=== PATIENT | female | born 1950 | race Caucasian/White ===

== ENCOUNTER → 2017-12-13 13:04 | Outpatient (CLI) | payer OTHER, SELFPAY ==
--- NOTE | 2017-12-13 | DI.MRI.S_ITS ---
PROCEDURE: MR CERVICAL SPINE WO CON INDICATIONS: NECK PAIN LUMBAR RADICULOPATHY TECHNIQUE: Noncontrast sagittal T1 spin echo and T2 fast spin echo, sagittal STIR, foraminal oblique sagittal T2 fast spin echo, and axial gradient echo or T2 fast spin echo through the cervical spine. COMPARISON: [facility], MR, C-SPINE WITHOUT CONTRAST, 06/19/2014, 14:49. [facility], CT, C-SPINE W/CONTRAST, 12/04/2014, 15:25. [facility], MR, C-SPINE WITHOUT CONTRAST, 03/10/2016, 14:13. FINDINGS: Image quality: Excellent. Alignment and Curvature: There is loss of normal cervical lordosis. Bone Marrow: There is anterior fusion at C5-C6. Marrow demonstrates normal overall signal. Spinal Cord: Visualized spinal cord has normal size and signal. No cerebellar tonsillar herniation. Paraspinous Soft Tissues: No paravertebral masses. Prevertebral soft tissues are normal in thickness. C2-C3: Preserved disc height. Mild disc desiccation. There is mild posterior disc bulge. Moderate bilateral facet arthropathy. The central canal is patent. No foraminal stenosis. C3-C4: Preserved disc height. Mild disc desiccation. There is mild posterior disc bulge and uncovertebral hypertrophy. Moderate bilateral facet arthropathy. The central canal is patent. No foraminal stenosis. Overall, there is no significant change from 03/10/2016. C4-C5: Mild loss of disc height and disc desiccation. There is broad posterior disc bulge and uncovertebral hypertrophy. Mild bilateral facet arthropathy. The central canal is [id number] narrowed. Moderate foraminal stenosis bilaterally. Overall, there is no significant change from 03/10/2016. C5-C6: Surgically fused. No central canal or foraminal stenosis. C6-C7: Mild loss of disc height. Mild disc desiccation. There is broad posterior disc bulge and disc osteophyte complex. The central canal is moderately narrowed. Moderate left and mild right foraminal stenosis. Overall, there is no significant change from 03/10/2016. C7-T1: Preserved disc height. Mild disc desiccation. There is mild broad posterior disc bulge. The central canal is minimally narrowed. No foraminal stenosis.. IMPRESSION: 1. Multilevel degenerative and postsurgical changes in cervical spine as described. 2. Multilevel central canal stenoses, moderate at C6-C7 and mild to moderate at C4-C5. 3. Multilevel foraminal stenoses as described, moderate at C4-C5 bilaterally and C6-C7 on the left. Dictated by: Gilbert Edwards M.D. on 12/13/2017 at 14:11 Approved by: Gilbert Edwards M.D. on 12/13/2017 at 17:54
--- NOTE | 2017-12-13 | DI.MRI.S_ITS ---
PROCEDURE: MR LUMBAR SPINE WO CON INDICATIONS: NECK PAIN LUMBAR RADICULOPATHY TECHNIQUE: Noncontrast sagittal T1 spin echo and T2 fast echo, sagittal STIR, axial T1 and T2 fast spin echo through the lumbar spine. In cases with scoliosis, additional coronal T2 fast spin echo may be performed. COMPARISON: [facility], MR, L-SPINE W&WO CONTRAST, 06/19/2014, 15:25. [facility], CR, SPINE LUMB 2 OR 3VW, 08/27/2014, 15:11. [facility], CT, L-SPINE W/CONTRAST, 12/04/2014, 15:25. [facility], MR, L-SPINE W&WO CONTRAST, 03/10/2016, 14:38. FINDINGS: Image quality: There are motion artifacts. Alignment and Curvature: There is mild levoscoliosis. Grade 1 retrolisthesis of L3 on L4. Bone Marrow: Degenerative endplate signal changes scattered in lumbar spine. No acute vertebral body compression fractures. Spinal Cord: Conus medullaris terminates at the L1-L2 level. Visualized cord demonstrates normal signal and size. Paraspinous Soft Tissues: No paravertebral masses. L1-L2: Severe loss of disc height and disc desiccation. There is mild diffuse posterior disc bulge. Mild bilateral facet arthropathy and hypertrophy of ligamentum flavum. The central canal is mildly narrowed. No foraminal stenosis. L2-L3: Severe loss of disc height and disc desiccation. There is diffuse posterior disc bulge and disc osteophyte complex. Mild bilateral facet arthropathy and hypertrophy of ligamentum flavum. The central canal is mildly narrowed. Moderate right and mild left foraminal stenosis. L3-L4: Right hemilaminectomy. Severe loss of disc height and disc desiccation. There is diffuse posterior disc bulge and disc osteophyte complex. Mild bilateral facet arthropathy and hypertrophy of ligamentum flavum. The central canal is mildly narrowed. Moderate bilateral foraminal stenosis. L4-L5: Preserved disc height. Moderate disc desiccation. There is diffuse posterior disc bulge and small posterior central annular tear. Mild bilateral facet arthropathy. The central canal is patent. Moderate bilateral foraminal stenosis. L5-S1: Severe loss of disc height and disc desiccation. There is diffuse posterior disc bulge and disc osteophyte complex. Mild bilateral facet arthropathy. The central canal is mildly narrowed. Whxpqeqh-wa-puhwun bilateral foraminal stenosis. IMPRESSION: 1. Multilevel degenerative disc disease and facet arthropathy as described. 2. Mild central canal stenosis at several levels. 3. Multilevel foraminal stenoses, moderate to severe L5-S1, moderate at L2-L3 on the right, L3-L4 bilaterally and L4-L5 bilaterally. Dictated by: Gilbert Edwards M.D. on 12/13/2017 at 15:56 Transcribed by: MEHDI on 12/13/2017 at 16:09 Approved by: Gilbert Edwards M.D. on 12/13/2017 at 17:59
== END ==
PROVIDERS: PCP Family Medicine; Visit Provider Family Medicine
DX: M54.2 Cervicalgia (principal); M54.16 Radiculopathy, lumbar region; M47.26 Other spondylosis with radiculopathy, lumbar region; M48.02 Spinal stenosis, cervical region; M48.061 Spinal stenosis, lumbar region without neurogenic claudication; M48.07 Spinal stenosis, lumbosacral region
CPT/HCPCS: 72141; 72148

== ENCOUNTER → 2018-05-06 16:25 | Outpatient (CLI) | payer OTHER, SELFPAY ==
--- NOTE | 2018-05-06 16:28 | DI.RAD.S_ITS ---
PROCEDURE: XR CHEST 2V INDICATIONS: cough TECHNIQUE: 2 views of the chest were acquired. COMPARISON: [facility], , CHEST 2 VIEW, 03/22/2017, 14:44. FINDINGS: Surgical changes and devices: Lower cervical spine fixation hardware redemonstrated. Lungs and pleura: No pleural effusions or pneumothorax. Lungs are clear. Mediastinum: Mediastinal contours are normal. Heart size is normal. Bones and chest wall: No suspicious bony abnormalities. Soft tissues appear unremarkable. IMPRESSION: No acute cardiopulmonary disease. Dictated by: William Castro [facility] Interpreted: Terrell Escudero MD on 05/06/2018 at 16:42 Approved by: Terrell Escudero M.D. on 05/06/2018 at 16:50
== END ==
PROVIDERS: PCP Family Medicine; Visit Provider Family Medicine
DX: R05 Cough (principal)
CPT/HCPCS: 71046

== ENCOUNTER → 2018-05-23 13:12 | Outpatient (CLI) | payer OTHER, SELFPAY ==
--- NOTE | 2018-05-23 | DI.CT.S_ITS ---
PROCEDURE: CT CHEST W CON INDICATIONS: COUGH TECHNIQUE: After the administration of intravenous contrast, 5 mm thick sections acquired from the pulmonary apices to the posterior costophrenic angles. 7 mm thick coronal and sagittal MIP reformats were acquired. For radiation dose reduction, the following was used: automated exposure control, adjustment of mA and/or kV according to patient size. COMPARISON: None. FINDINGS: Image quality: Excellent. Lungs and pleura: No acute air space opacities. No pleural effusions or pneumothorax. Central and peripheral airways are patent and normal in caliber. Mediastinum: Heart size is normal. No pericardial effusion. No mediastinal or hilar adenopathy by size criteria. Thoracic aorta and central pulmonary arteries are normal in size. Esophagus is normal in caliber. Small hiatal hernia. Bones and chest wall: No suspicious bony lesions. No vertebral body compression fractures. No axillary or supraclavicular adenopathy by size criteria. Thyroid gland negative. Hepatic steatosis. Scattered hypodense lesions in liver which are presumably cysts although some of these are technically too small to characterize definitively for example on image 51 in the right lobe. IMPRESSION: No acute consolidation. Scattered scarring/atelectasis. Small hiatal hernia. Presumed hepatic cysts although some of these are technically too small characterize. Hepatic steatosis. Dictated by: Tererll Escudero M.D. on 05/23/2018 at 15:13 Approved by: Terrell Escudero M.D. on 05/23/2018 at 15:19
== END ==
PROVIDERS: PCP Family Medicine; Visit Provider Family Medicine
DX: R05 Cough (principal); J98.4 Other disorders of lung; K76.0 Fatty (change of) liver, not elsewhere classified; K44.9 Diaphragmatic hernia without obstruction or gangrene
CPT/HCPCS: 71260; Q9967

== ENCOUNTER → 2018-08-11 16:32 | Outpatient (CLI) | payer OTHER, SELFPAY ==
[2018-08-11 17:15] LABS: Add Manual Diff / Slide Review NO; Basophils Absolute Auto 0 /uL (0-100); Basophils Percent Auto 0.4 % (0-2); Eosinophils Absolute Auto 300 /uL (0-450); Eosinophils Percent Auto 3.4 % (2-4); Hemoglobin 14.9 g/dL (12.0-16.0); Lymphocytes Absolute Auto 2800 /uL (1100-4500); Lymphocytes Percent Auto 36.6 % (25-40); Mean Corpuscular HGB Conc 33.1 % (30-36); Mean Corpuscular Hemoglobin 27.7 PG (26-34); Mean Corpuscular Volume 83.8 fL (80-100); Monocytes Absolute Auto 600 /uL (0-900); Monocytes Percent Auto 7.5 % (3-14); Neutrophils Absolute Auto 4000 /uL (1500-7000); Neutrophils Percent Auto 52.1 % (50-75); Platelet Count 243 X10^3/uL (150-400); Red Blood Cell Count 5.37 X10^6/uL (4.0-5.2); Red Cell Distribution Width 13.8 % (11.6-14.8); White Blood Cell Count 7.7 X10^3/uL (4.5-11.0)
[2018-08-11 17:36] LABS: Alanine Aminotransferase 26 IU/L (9-52); Albumin 4.5 g/dL (3.5-5.0); Albumin Globulin Ratio 1.4 (1.0-2.8); Alkaline Phosphatase 51 U/L (38-126); Aspartate Aminotransferase 30 IU/L (14-36); BUN Creatinine Ratio 20.8 (6-22); Bilirubin Total 0.3 mg/dL (0.2-1.3); Blood Urea Nitrogen 27 mg/dL (7-17); Calcium 9.7 mg/dL (8.4-10.2); Carbon Dioxide 32 mmol/L (22-32); Chloride 97 mmol/L (98-107); Cholesterol 232 mg/dL (140-199); Estimated Glomerular Filt Rate 40.6 mL/min (>60); Globulin 3.3 g/dL (1.7-4.1); Glucose 89 mg/dL (80-110); HDL Cholesterol 53 mg/dL (40-60); HEMOLYSIS < 15 (0-50); LDL Cholesterol Calculated 136 mg/dL (<100); Potassium 4.2 mmol/L (3.4-5.1); Sodium 138 mmol/L (137-145); Total Protein 7.8 g/dL (6.3-8.2); Triglycerides 214 mg/dL (35-150)
[2018-08-11 17:52] LABS: Free T4, Direct Thyroxine 1.29 ng/dL (0.78-2.19)
[2018-08-11 18:06] LABS: LDL Cholesterol Direct 146 mg/dL (<100); Thyroid Stimulating Hormone 0.03 uIU/mL (0.47-4.68)
== END ==
PROVIDERS: Family Provider Family Medicine; PCP Family Medicine; Visit Provider Family Medicine
DX: K76.0 Fatty (change of) liver, not elsewhere classified (principal); R05 Cough; M79.7 Fibromyalgia; R35.0 Frequency of micturition; N18.3 Chronic kidney disease, stage 3 (moderate); M85.80 Other specified disorders of bone density and structure, unspecified site; M54.16 Radiculopathy, lumbar region; R79.89 Other specified abnormal findings of blood chemistry; E03.9 Hypothyroidism, unspecified; E78.5 Hyperlipidemia, unspecified; F41.8 Other specified anxiety disorders
CPT/HCPCS: 36415; 80053; 80061; 83721; 84439; 84443; 85025

== ENCOUNTER → 2018-08-17 14:25 | Outpatient (CLI) | payer OTHER, SELFPAY ==
--- NOTE | 2018-08-17 | DI.MG.S_ITS ---
BILATERAL DIGITAL SCREENING MAMMOGRAM 3D/2D WITH CAD: 08/17/2018 CLINICAL: Routine screening. Comparison is made to exams dated: 04/06/2017 mammogram, 01/19/2014 mammogram, and 03/07/2010 mammogram - [facility]. There are scattered fibroglandular elements in both breasts. Current study was also evaluated with a Computer Aided Detection (CAD) system. No significant masses, calcifications, or other findings are seen in either breast. There has been no significant interval change. IMPRESSION: NEGATIVE There is no mammographic evidence of malignancy. A 1 year screening mammogram is recommended. This exam was interpreted at Station ID: [id number]. NOTE: For mammograms, a report in lay terms will be sent to the patient. Approximately 15% of breast malignancies will not be visualized mammographically. In the management of a palpable breast mass, a negative mammogram must not discourage biopsy of a clinically suspicious lesion. Electronically Signed By: Panchito murillo/[email or web address]:08/17/2018 17:49:07 letter sent: Normal Exam ACR BI-RADS Category 1: Negative [id number]
== END ==
PROVIDERS: PCP Family Medicine; Visit Provider Family Medicine
DX: Z12.31 Encounter for screening mammogram for malignant neoplasm of breast (principal)
CPT/HCPCS: 77063; 77067

== ENCOUNTER → 2019-03-16 17:40 | Outpatient (CLI) | payer OTHER, SELFPAY ==
[2019-03-16 18:47] LABS: Free T4, Direct Thyroxine 1.37 ng/dL (0.78-2.19)
[2019-03-16 19:01] LABS: Thyroid Stimulating Hormone < 0.02 uIU/mL (0.47-4.68)
[2019-03-21 14:32] LABS: Dehydroepiandrosterone Sulfate 30 mcg/dL (12-133)
[2019-03-21 15:49] LABS: Testosterone Free 1.3 pg/mL (0.2-3.7); Testosterone Total 26 ng/dL (2-45)
== END ==
PROVIDERS: Family Provider Family Medicine; PCP Family Medicine; Visit Provider Internal Medicine
DX: E03.9 Hypothyroidism, unspecified (principal); L65.9 Nonscarring hair loss, unspecified
CPT/HCPCS: 36415; 82627; 84402; 84403; 84439; 84443

== ENCOUNTER → 2019-04-19 16:03 | Outpatient (CLI) | payer OTHER, SELFPAY ==
--- NOTE | 2019-04-19 | DI.RAD.S_ITS ---
PROCEDURE: XR LUMBAR SPINE 2-3V INDICATIONS: LOW BACK PAIN TECHNIQUE: 3 views of the lumbar spine were acquired. COMPARISON: [facility], CR, SPINE LUMB 2 OR 3VW, 08/27/2014, 15:11. [facility], DEYSI, L-SPINE 2-3 VIEWS, 05/14/2014, 17:06. FINDINGS: Bones: No fracture or focal osseous destruction. Multilevel degenerative endplate sclerosis and spurring. Diffuse facet arthropathy. Levoscoliosis. Straightening of the normal lordotic curvature. Trace retrolisthesis of L2 on L3 and L3 on L4. Moderate to severe diffuse lumbar disc space narrowing. Posterior stabilization device seen at the level of L5-S1 as before. Soft tissues: Overlying bowel gas pattern is normal. No suspicious soft tissue calcifications. IMPRESSION: Multilevel lumbar spondylosis, which has progressed since 08/27/14 in particular at the L3-L4 level. Levoscoliosis Diffuse facet arthropathy Dictated by: Terrell Escudero M.D. on 04/20/2019 at 9:35 Approved by: Terrell Escudero M.D. on 04/20/2019 at 9:38
== END ==
PROVIDERS: PCP Family Medicine; Visit Provider Family Medicine
DX: M54.5 Low back pain (principal); M47.817 Spondylosis without myelopathy or radiculopathy, lumbosacral region; M41.9 Scoliosis, unspecified
CPT/HCPCS: 72100

== ENCOUNTER → 2019-05-29 12:59 | Outpatient (CLI) | payer OTHER, SELFPAY ==
--- NOTE | 2019-05-29 | DI.MRI.S_ITS ---
PROCEDURE: MR LUMBAR SPINE WO CON INDICATIONS: RADICULOPATHY TECHNIQUE: Noncontrast sagittal T1 spin echo and T2 fast echo, sagittal STIR, axial T1 and T2 fast spin echo through the lumbar spine. In cases with scoliosis, additional coronal T2 fast spin echo may be performed. COMPARISON: [facility], MR, MR LUMBAR SPINE WO CON, 12/13/2017, 13:47. [facility], CR, XR LUMBAR SPINE 2-3V, 04/19/2019, 16:17. FINDINGS: Image quality: Excellent. Alignment and Curvature: 5 lumbar type vertebral bodies are present by plain film. There is mild, grade 1 retrolisthesis of L2 on L3, L3 on L4, L4 on L5, and L5 on S1. Bone Marrow: Marrow is of normal overall signal. No acute vertebral body compression fractures. Mild reactive signal within the endplates adjacent to the L1-L2, L2-L3, L3-L4, and L5-S1 intervertebral discs. Spinal Cord: Conus medullaris terminates at the L2-L3 disc space level. Visualized cord demonstrates normal signal and size. Paraspinous Soft Tissues: No paravertebral masses. L1-L2: Severe disc height loss and desiccation. Mild diffuse disc bulge. Mild facet and ligamentum flavum hypertrophy. Mild canal stenosis. No foraminal stenosis bilaterally. No change. L2-L3: Severe disc height loss and desiccation. Mild diffuse disc bulge/osteophyte with small superimposed right far lateral protrusion. Mild facet and ligament flavum hypertrophy. Mild canal stenosis. Mild bilateral foraminal stenosis. No change. L3-L4: Moderate disc height loss and desiccation. Mild diffuse disc bulge with superimposed left far lateral broad-based protrusion. Mild facet and ligamentum flavum hypertrophy bilaterally. Mild facet hypertrophy bilaterally. Mild canal stenosis. Mild bilateral foraminal stenosis. No change. L4-L5: Moderate disc desiccation. Moderate diffuse disc bulge with superimposed left far lateral broad-based protrusion. Mild facet and ligamentum flavum hypertrophy bilaterally. Mild canal stenosis. Moderate left and mild right foraminal stenosis. No change. L5-S1: Severe disc height loss and desiccation. Mild diffuse disc bulge. Mild bilateral facet hypertrophy. Mild canal stenosis. Moderate subarticular foraminal stenosis bilaterally. No change. IMPRESSION: 1. Multilevel degenerative disc and facet disease, as well as ligamentum flavum hypertrophy and epidural lipomatosis. 2. Mild multilevel canal stenoses. 3. Multilevel foraminal stenoses, worst at L4-L5 on the left, and L5-S1 bilaterally where there are moderate foraminal stenoses. Dictated by: Henry Marcelino M.D. on 05/29/2019 at 15:07 Approved by: Henry Marcelino M.D. on 05/29/2019 at 15:11
--- NOTE | 2019-05-29 | DI.MRI.S_ITS ---
PROCEDURE: MR CERVICAL SPINE WO CON INDICATIONS: RADICULOPATHY TECHNIQUE: Noncontrast sagittal T1 spin echo and T2 fast spin echo, sagittal STIR, foraminal oblique sagittal T2 fast spin echo, and axial gradient echo or T2 fast spin echo through the cervical spine. COMPARISON: [facility], MR, MR CERVICAL SPINE WO CON, 12/13/2017, 13:19. FINDINGS: Image quality: Excellent. Alignment and Curvature: There is loss of normal cervical lordosis. There is grade 1 anterolisthesis of C4 on C5. There is mild reactive signal within the endplates adjacent to the C4-C5 and C6-C7 intervertebral discs. Bone Marrow: Marrow demonstrates normal overall signal. Spinal Cord: Visualized spinal cord has normal size and signal. No cerebellar tonsillar herniation. Paraspinous Soft Tissues: No paravertebral masses. Prevertebral soft tissues are normal in thickness. C2-C3: Moderate disc desiccation. Mild bilateral facet hypertrophy. No canal stenosis. Mild bilateral foraminal stenosis. C3-C4: Moderate disc desiccation. Mild facet hypertrophy bilaterally. No significant canal stenosis. Mild bilateral foraminal stenosis. C4-C5: Moderate disc desiccation. Mild diffuse disc bulge. Mild facet and uncovertebral hypertrophy bilaterally. Moderate canal stenosis. Severe left and mild right foraminal stenosis. Left C5 nerve root compression. No change. C5-C6: Status post fusion. Mild facet hypertrophy bilaterally. No significant canal stenosis. Mild bilateral foraminal stenosis. No change. C6-C7: Moderate disc height loss and desiccation. Mild diffuse disc bulge. Mild facet and uncovertebral hypertrophy bilaterally. Moderate to severe canal stenosis. Mild cord flattening. Moderate right and severe left foraminal stenosis, which are increased. Left C7 nerve root compression. C7-T1: Moderate disc desiccation. Mild disc height loss. Mild diffuse disc bulge with superimposed small central protrusion. Mild bilateral facet and uncovertebral hypertrophy. Mild canal stenosis. Mild bilateral foraminal stenosis. No change. IMPRESSION: 1. Multilevel degenerative disc and facet disease, as well as uncovertebral hypertrophy. 2. Multilevel canal stenoses, worst at C6-C7 where there is mild cord flattening present. 3. Multilevel foraminal stenoses, worst at C4-C5 on the left, and at C6-C7 on the left, where there is associated intraforaminal nerve root compression. Recommend correlation with clinical symptoms to ascertain relevance of this finding. Dictated by: Henry Marcelino M.D. on 05/29/2019 at 14:37 Approved by: Henry Marcelino M.D. on 05/29/2019 at 14:43
== END ==
PROVIDERS: PCP Family Medicine; Visit Provider Family Medicine
DX: M50.11 Cervical disc disorder with radiculopathy, high cervical region (principal); M48.02 Spinal stenosis, cervical region; M51.16 Intervertebral disc disorders with radiculopathy, lumbar region; M51.17 Intervertebral disc disorders with radiculopathy, lumbosacral region; M48.061 Spinal stenosis, lumbar region without neurogenic claudication; M48.07 Spinal stenosis, lumbosacral region; M53.80 Other specified dorsopathies, site unspecified; G89.29 Other chronic pain; E88.2 Lipomatosis, not elsewhere classified; Z98.1 Arthrodesis status
CPT/HCPCS: 72141; 72148

== ENCOUNTER → 2019-07-11 12:38 | Outpatient (CLI) | payer OTHER, SELFPAY ==
[2019-07-11 14:40] LABS: Add Manual Diff / Slide Review NO; Basophils Absolute Auto 0 /uL (0-100); Basophils Percent Auto 0.8 % (0-2); Eosinophils Absolute Auto 300 /uL (0-450); Eosinophils Percent Auto 4.4 % (2-4); Hematocrit 41.7 % (36-46); Lymphocytes Absolute Auto 3000 /uL (1100-4500); Lymphocytes Percent Auto 50.3 % (25-40); Mean Corpuscular HGB Conc 33.5 % (30-36); Mean Corpuscular Hemoglobin 27.9 PG (26-34); Mean Corpuscular Volume 83.3 fL (80-100); Monocytes Absolute Auto 400 /uL (0-900); Monocytes Percent Auto 7.2 % (3-14); Neutrophils Absolute Auto 2200 /uL (1500-7000); Neutrophils Percent Auto 37.3 % (50-75); Platelet Count 222 X10^3/uL (150-400); Red Blood Cell Count 5.01 X10^6/uL (4.0-5.2); Red Cell Distribution Width 14.3 % (11.6-14.8); White Blood Cell Count 5.9 X10^3/uL (4.5-11.0)
[2019-07-11 15:25] LABS: Alanine Aminotransferase 18 IU/L (<35); Albumin 4.2 g/dL (3.5-5.0); Albumin Globulin Ratio 1.3 (1.0-2.8); Alkaline Phosphatase 47 U/L (38-126); Aspartate Aminotransferase 32 IU/L (14-36); BUN Creatinine Ratio 16.7 (6-22); Bilirubin Total 0.3 mg/dL (0.2-1.3); Blood Urea Nitrogen 20 mg/dL (7-17); Calcium 9.6 mg/dL (8.4-10.2); Carbon Dioxide 32 mmol/L (22-32); Chloride 96 mmol/L (98-107); Estimated Glomerular Filt Rate 44.4 mL/min (>60); Globulin 3.3 g/dL (1.7-4.1); Glucose 85 mg/dL (80-110); HEMOLYSIS < 15 (0-50); Potassium 3.9 mmol/L (3.4-5.1); Sodium 138 mmol/L (137-145); Total Protein 7.5 g/dL (6.3-8.2)
== END ==
PROVIDERS: PCP Family Medicine; Visit Provider Orthopaedic Surgery
DX: Z01.818 Encounter for other preprocedural examination (principal); Z01.812 Encounter for preprocedural laboratory examination
CPT/HCPCS: 36415; 80053; 85025; 93005

== ENCOUNTER 2019-08-03 12:47 | Inpatient (IN) | payer OTHER, SELFPAY ==
[2019-07-31 13:39] VITALS: BMI 28.0
[2019-08-03] VITALS (11 sets, daily range): BP systolic 122–170; BP diastolic 53–92; PULSE 78–98; RESP 11–18; TEMP 36.1–37.1; O2SAT 94–98; BMI 29.9
--- NOTE | 2019-08-03 | DI.RAD.S_ITS ---
PROCEDURE: XR CERVICAL SPINE 2V OR 3V INDICATIONS: C4-C5, C6-C7 ACDF TECHNIQUE: 2 view(s) of the cervical spine were acquired. COMPARISON: [facility], CR, CHEST 2 VIEW, 03/22/2017, 14:44. [facility], MR, MR CERVICAL SPINE WO CON, 05/29/2019, 13:09. [facility], MR, MR CERVICAL SPINE WO CON, 12/13/2017, 13:19. [facility], MR, C-SPINE WITHOUT CONTRAST, 03/10/2016, 14:13. FINDINGS: Bones: Prior C5-C6 fusion by anterior discectomy, interbody bone graft fusion, and anterior dual level plate crossing C5-C6. This plate has been removed, osseous fusion between C5 and C6 appears long-standing, and there is anterior staple fusion with interbody disc prosthesis now present at C4-C5 and C6-C7.. Soft tissues: No prevertebral soft tissue swelling. IMPRESSION: Fusion plate removal, preservation of C5-6 osseous fusion, new anterior fusion procedure with interbody disc prosthesis devices independently present at C4-C5 and C6-C7. Normal alignment established. Dictated by: Theo Mcclellan M.D. on 08/03/2019 at 16:10 Approved by: Theo Mcclellan M.D. on 08/03/2019 at 16:15
[2019-08-03] MEDS: ACETAMINOPHEN 325 MG TABLET 975 MG PO (13:00)
[2019-08-03] MEDS: GABAPENTIN 300 MG CAPSULE PO (13:00)
--- NOTE | 2019-08-03 13:03 | PM.PREOP ---
Pre-operative Note Interval Note History & Physical reviewed/Exam performed by Physician: Yes Changes to H&P: No
[2019-08-03] MEDS: LACTATED RINGERS 1,000 ML 42 ML IV (13:14)
[2019-08-03] MEDS: CEFAZOLIN 2 GM/100 ML FROZ.PIGGY IV ×2 (13:38→17:05)
[2019-08-03] MEDS: BUPIVACAINE 0.25% W/ EPI 30 ML VIAL INJ (14:09)
[2019-08-03] MEDS: THROMBIN (RECOMBINANT) 5,000 UNIT VIAL 5000 UNIT TOP (14:09)
[2019-08-03] MEDS: SODIUM CHLORIDE 0.9% 1,000 ML, GENTAMICIN 80 MG IRR (14:10)
--- NOTE | 2019-08-03 14:48 | SUR.OPER ---
Supine, head on gel donut. Arms padded with gel pads, tucked at sides, towel roll under shoulders. Safety belt at thigh. Legs uncrossed.
--- NOTE | 2019-08-03 15:42 | P.OP_ITS ---
Operative Date/Time/Diagnoses Date of procedure: 08/03/19 Time of procedure: 15:42 Pre-op diagnosis: Cervical stenosis with myelopathy History of anterior cervical fusion Post-op diagnosis: same Procedure & Clinicians Procedure: C4-5, C6-7 anterior cervical diskectomy and fusion with cages Iliac crest bone graft aspirate Removal of old C5-6 plate Use of microscope Same procedure as scheduled: Yes Indications: [age] year old female with intractable pain from stenosis. They had failed conservative management and requested operative intervention. Risks and benefits of surgery were discussed and appropriate consents were obtained. Surgeon: Lawson Vail Drop Forger Helper: Jagdish Veliz Anesthesia Type: General Operative Notes Findings: None Closure Type: primary Specimen(s): none sent Prosthetic devices, grafts, tissues, transplants, or devices: Ratna MOHINI-C Estimated Blood Loss (mL): 10 Procedure in detail: Patient was brought to the operating room and intubated on the table. A time-out was performed. Preoperative antibiotics were given. The neck was prepped and draped in the standard sterile fashion. Using her previous incision on the right side, we used a scalpel to cut through the skin. We used Bovie to go through the platysma and then did a standard anterolateral blunt dissection down to the precervical fascia. There was a fair amount of scar tissue from her previous surgery that we had to carefully dissect through until we came down to the level of her previous plate. Fascia was nicked and elevated up. A marker was placed and x-ray was taken for localization. The old C5-6 plate was removed. We then subperiosteally elevated up the longus colli muscles. Self-retaining retractors were placed. [place] pins were placed. We then brought in the microscope. A scalpel used to perform an annulotomy. We then used a combination of pituitaries and curettes and Kerrison to perform a complete anterior diskectomy at C4-5. We used the bur to take down the posterior osteophytes. We took down the PLL and used Kerrison to remove any posterior disc material and osteophytes. At the end we could from the nerve hook cephalad caudally and out the foramen and everything was opened. A small stab incision was made over the left anterior iliac crest. A Jamshidi needle was advanced into the pelvis and 2 mL of bone marrow was aspirated. We then used the trials. We then packed a 15 x 13 x 6 mm mm MOHINI-C cage with Primagen bone graft and the iliac crest harvest. The cage was placed under fluoroscopic guidance. We then placed our two locking plates. The retractors were then moved down to C6-7. We used a scalpel for an annulotomy. Pituitaries curettes and Kerrisons were used to perform a complete diskectomy at C6-7. A bur was used to decorticate the endplates as well as the posterior osteophytes. We then went through the PLL and removed further posterior osteophytes with a Kerrison. We used a nerve hook to confirm that everything was opened. We then trialed and placed a 15 x 15 x 6mm MOHINI-C cage packed with bone graft for the anterior fusion at C6-7. The self-retaining retractors and [place] pins were removed and final x-rays taken. The wound was irrigated. There was no bleeding, but a little bit of oozing from her bony holes. These had been packed with bone wax but there is still a slight ooze and we placed a Livan drain. The carotid was beating nicely. The platysma was closed. The superficial was closed. The skin was closed. A sterile dressing was placed. They were then extubated and brought to recovery room with no complications. Complications: none Post-operative Condition: stable Disposition: PACU Plan for aftercare: Inpatient. Up with PT. Probably pull drain and discharge in the morning. She has a high narcotic tolerance from her chronic pain medication and pain control may be an issue for her.
[2019-08-03] MEDS: LACTATED RINGERS 1,000 ML 125 ML IV (17:05)
[2019-08-03] MEDS: DEXAMETHASONE 4 MG/ML VIAL IV (17:28)
[2019-08-03] MEDS: OXYCODONE IR 10 MG TABLET PO ×2 (18:32→22:57)
[2019-08-03] MEDS: TRAZODONE 100 MG TABLET 50 MG PO (20:19)
[2019-08-03] MEDS: CYCLOBENZAPRINE 10 MG TABLET PO (20:19)
[2019-08-03] MEDS: OXYCODONE ER 20 MG TAB 40 MG PO (20:26)
--- NOTE | 2019-08-03 23:41 | PC.NURSE ---
pt dressing cdi. soft collar on. luisa drain compressed and intact. oxycodone and oxycontin for pain management. SBA to the BR. pt able swallow ok. bed alarm on. scds. call light in reach.
[2019-08-04] MEDS: LACTATED RINGERS 1,000 ML 125 ML IV (00:01)
[2019-08-04] MEDS: CEFAZOLIN 2 GM/100 ML FROZ.PIGGY IV (00:03)
[2019-08-04 00:30] VITALS: BP 149/79; PULSE 89; RESP 16; TEMP 36.3; O2SAT 97
[2019-08-04] MEDS: OXYCODONE IR 10 MG TABLET PO ×2 (03:48→08:31)
[2019-08-04] MEDS: HYDROMORPHONE 0.5 MG INJ IV ×2 (04:10→06:05)
[2019-08-04 04:15] VITALS: BP 152/77; PULSE 96; RESP 20; TEMP 36.2; O2SAT 97
[2019-08-04] MEDS: DEXAMETHASONE 4 MG/ML VIAL IV ×2 (06:05)
--- NOTE | 2019-08-04 06:29 | PC.NURSE ---
Pt alert and oriented x4. C-Collar intact around neck. Cervical dressing clean dry and intact. Livan drain intake. Pt 1pa to BSC without issues. Pt reports 6/10 pain only slightly resolved with PRN oxycodone and dilaudid. Ice and essential oils applied to help with pain. Pt upset that her percocet is not ordered, reported to patient that Dr will be notified. Pt reports no do not call the doctor I am fine Pt seems content in bed while texting friends. Pt has no other complaints at this time.
--- NOTE | 2019-08-04 07:53 | P.PN_ITS ---
Subjective Subjective Date Patient Seen: 08/04/19 Time Patient Seen: 07:53 Interval history: Still having some pain in the arms. Having difficulty with getting enough pain medication but it's tolerable this point. Exam Vital Signs (past 8 hours): - 08/04/19 00:30 08/04/19 04:15 Temperature 97.4 F L 97.2 F L Pulse Rate 89 96 H Respiratory Rate 16 20 Blood Pressure 149/79 H 152/77 H Pulse Oximetry 97 97 Oxygen Delivery Method Room Air,CPAP Oxygen Flow Rate 0 Const Orientation: alert and oriented x3 Back/Spine/Pelvis Other: CDI. Drain . 5/5 motor both upper extremities Assessment & Plan Post-op Postoperative Procedures: Procedures Operation Date: 08/03/19 13:00 Actual Procedures Side Surgeon p Remove old C5-6 plate & anterior discectomy & instrument fusion w/bone graft at C4-5 & C6-7 Lawson Vail MD Stable after ACDF. Plan removed the drain and discharge home today. She has her baseline oxycodone 40 mg b.i.d. and we will send her home with 10 mg short- acting. Quality VTE Deep Vein Thrombosis/Pulmonary Embolism Present on Admission: No
[2019-08-04 08:00] VITALS: BP 146/106; PULSE 98; RESP 18; TEMP 37.3; O2SAT 95
[2019-08-04] MEDS: CHOLECALCIFEROL (VITAMIN D3) 1,000 UNIT TABLET 2000 UNIT PO (08:28)
[2019-08-04] MEDS: hydroCHLOROthiazide 25 MG TABLET PO (08:28)
[2019-08-04] MEDS: MELOXICAM 7.5 MG TABLET 15 MG PO (08:29)
[2019-08-04] MEDS: LORATADINE 10 MG TABLET PO (08:29)
[2019-08-04] MEDS: OXYCODONE ER 20 MG TAB 40 MG PO (08:30)
[2019-08-04] MEDS: FISH OIL 1,000 MG CAPSULE 1000 MG PO (08:30)
[2019-08-04] MEDS: VITAMIN B COMPLEX 1 CAPSULE 1 CAP PO (08:31)
--- NOTE | 2019-08-04 10:48 | PT.IIE ---
Current Diagnoses Other forms of scoliosis, lumbar region (08/03/19) Other spondylosis with myelopathy, cervical region (08/03/19) Spinal stenosis, cervical region (08/03/19) Arthrodesis status (08/03/19) Surgery Performed Operation Date: 08/03/19 13:00 Actual Procedures p Remove old C5-6 plate & anterior discectomy & instrument fusion w/bone graft at C4-5 & C6-7 - Lawson Vail MD Surgical History (Last Updated 07/31/19 @ 14:20 by Debbi Goldberg RN) Hx of bilateral cataract extraction (Acute) Hx of cervical discectomy (Acute) Hx of laminectomy (Acute) Hx of lumbar discectomy (Acute) Medical History (Last Updated 07/31/19 @ 14:20 by Debbi Goldberg RN) BCC (basal cell carcinoma) (Acute ~02/2019) Central sleep apnea (Acute) Chronic pain (Acute) Depression (Acute) Edema (Acute) Fibromyalgia (Acute) Glaucoma (Acute) Headache, migraine (Acute) HTN (hypertension) (Acute) Hypothyroid (Acute) Osteoarthritis (Acute) Peripheral neuropathy (Acute) Rheumatoid arthritis (Acute) Seasonal allergies (Acute) TIA (transient ischemic attack) (Acute ~2013) Physical Therapy Inpatient Evaluation/Re-Eval M1 PT/OT-IP Prior Functional Status Start: 08/04/19 09:25 Freq: NEEDED Status: Active Protocol: Document 08/04/19 09:40 (Rec: 08/04/19 10:48 [email or web address]) Medical Review Prior Functional Status Medical History Reviewed Yes Diet/Fluid Consistency Regular Communication able to make needs known. no deficits noted. Mobility and Gait independent with all mobility with AD. However, pt has fibromyalgia and RA at baseline who needed to use quadcane for mobility occasionally if she has a flare up. Activities of Daily Living and IADL's independent with all ADLs and IADLS without AD Social History Household Members none Living Arrangements Apartment/Condo Number of Floors (Floors) 3 or More Floors Number of Stairs To Enter/Railing? with level entry and elevator access to 3rd floor. Home Environment Standard Height Toilet,Walk in Shower,Tub/Shower Doors Home Equipment Quad Cane,Grab Bars In Shower Employment Status Unemployed Additional Social History Comment Pt lives alone in an apt in [place]. Has a couple good friends/ neighbors that could assist her if needed. Pt had 3 back and 1 neck surgeries within the past 8-10 years and was able to d/c home w/o assistance after hospitalization. Per EMR, She has a high narcotic tolerance from her chronic pain medication and pain control may be an issue for her Pt is an [place] immigrant and most of her family members live in [place] but has a son lives in [place]. She also reports she will have to call taxi to pick her up upon d/c . M2 PT-IP Current Condition Start: 08/04/19 09:25 Freq: NEEDED Status: Active Protocol: Document 08/04/19 09:40 (Rec: 08/04/19 10:48 [email or web address]) Physical Therapy Current Condition Current Condition Evaluation Date 08/04/19 Treatment Diagnosis C4-C7 ACDF, pain at B shoulders and migraines Onset Date 08/03/19 Precautions Cervical Spine Precautions Soft Collar for Comfort,Rigid Collar,No Heavy Lifting,Log Roll Weight Bearing Status Weight Bearing Status Full Weight Bearing M3 PT-IP Subjective Start: 08/04/19 09:25 Freq: NEEDED Status: Active Protocol: Document 08/04/19 09:40 HH (Rec: 08/04/19 10:48 [email or web address]) Subjective Physical Therapy Visit Type Type Initial Evaluation Visit Start Time 09:40 Visit Stop Time 10:15 Total Visit Minutes 35 Number of SPEECH PATHOLOGY ASSISTANT Visits 0 Physical Therapy Visit Comments Patient Comments I still have soreness and pain at both of my shoulders. Patient Goals To return home Therapy Pain Assessment Pain When Pain Assessed During Mobility Pain Present Pain Present Pain Reported Location back Intensity 4 Scale Used Numeric (1 - 10) Description Aching Pain Management Techniques Apply Cold,Timing of Activity with Medications M4 PT-IP Mobility and Gait Start: 08/04/19 09:25 Freq: NEEDED Status: Active Protocol: Document 08/04/19 09:40 HH (Rec: 08/04/19 10:48 [email or web address]) PT-Bed Mobility Assessment Rolling Type of Rolling Log Rolling,Roll to Left Level of Assist Standby Assistance Supine to Sit Supine to Sit Contact Guard Assistance Scooting Scooting to Edge of Bed Standby Assistance PT-Transfer Assessment Sit to and From Stand Sit to and from Stand Standby Assistance,Use of Upper Extremities Equipment Transfer Assistive Device Gait Belt Orthotic/Prosthetic Devices or Brace: Yes Transfers Transfer Destination Bed,Chair Transfer Technique Stand Step Pivot Transfer Ability Level of Assist Standby Assistance Comments Mobility Comments Pt resting in bed upon PT arrival. Pt then log rolled to L side SBA and pushed from SL position with CGA without using bedrail features. Pt then stood up without AD and transferred to bedside chair. BP at 153/75 HR 103. Pt then stood up again from low chair with UEs pushed off from armrests. Pt returned to chair after amb without AD SBA. She was able to descend safely from stand to sit. Reclined her chair to comfortable position and call light placed within reach. Gait Assessment Gait Gait Assistance Required: Standby Assistance Distance (Feet) 180 Able to Maintain Weight Bearing Status Yes During Gait Assistive Devices Assistive Device Gait Belt Orthotic/Prosthetic Devices or Brace: Yes Gait Deviations General Gait Pattern Within Normal Limits Factors Limiting Gait Function Factors Limiting Gait Function Pain Comments Gait Comments Pt c/o heaviness and achy pain at B shoulders after ambulation. No gait deviation noted. Stair Climbing Assessment Comments Stair Climbing Comments no stair at home. no assessment needed. PT-Balance Assessment Sitting Balance and Reactions Static Sitting Balance Ability Normal Dynamic Sitting Balance Ability Normal Standing Balance and Reactions Static Standing Balance Ability Normal Dynamic Standing Balance Ability Normal Device Used none M5 PT-IP Objective Assessments Start: 08/04/19 09:25 Freq: NEEDED Status: Active Protocol: Document 08/04/19 09:40 (Rec: 08/04/19 10:48 [email or web address]) Orientation Orientation/Cognition Level of Alertness Alert Orientation Name,Age,Birthday,Month,Date, Year,Day of Week,Place, Situation Language Function Ability No Deficits Noted Safety Awareness Understands Safety Issues Memory Description No Deficits Noted Gross Range of Motion Upper Extremity ROM Assessment Bilaterally Impaired Impairments slow UEs movements for overhead reaching. Lower Extremity ROM Assessment Within Functional Limits Strength Upper Extremity Strength Assessment Bilaterally Impaired Shoulder 4-/5 Elbow 4+/5 Wrist 4+/5 Hand 4+/5 Lower Extremity Strength Assessment Within Functional Limits Comments Strength Comments R UEs grossly 4+/5 L UEs grossly 4- to 4+/5 , pain at resisted shoulder flexion/ abd Coordination Assessment Gross Coordination Gross Coordination WNL Sensation Assessment Sensation Gross Sensation Right UE Impaired Light Touch Impaired Proprioception (Position) Impaired Comments Sensation Comments decreased sensitivity to touch / pressure on R C6-T2 dermatomes Muscle Tone Muscle Tone WNL Yes M6 PT-IP Treatment Start: 08/04/19 09:25 Freq: NEEDED Status: Active Protocol: Document 08/04/19 09:40 HH (Rec: 08/04/19 10:48 [email or web address]) Physical Therapy Treatment Education Brace Education Donning,Cannon [place],Patient Other Treatments Other Treatment Performed education on collar fitting and to use it for comfort and support while in public. M7 PT-IP Assessment and Plan Start: 08/04/19 09:25 Freq: NEEDED Status: Active Protocol: Document 08/04/19 09:40 HH (Rec: 08/04/19 10:48 [email or web address]) PT Summary Assessment and Plan Potential Rehabilitation Potential Excellent Status of Condition at Evaluation Stable Summary Progress Towards Goals Safe For Discharge Assessment Summary This is a low complexity eval for this 68yo female s/p POD 2 C4-7 ACDF. Per EMR, pt had multiple back and neck surgeries and issues with pain management. However, pt was able to d/c home after hospitalization for each hospitalization despite the face that pt lives alone. Upon assessment, pt appears very fidgety for both UEs and LEs and this therapist was told that was her baseline possibly d/t her persistent pain med use. Pt was able to recall all 3 post op precautions and able to log roll for bed mobility, followed by amb without AD SBA in hallway safely. Pt overall was aware of her precautions and demonstrated safe transfers. Pt's overall mobility is at baseline and safe to d/c home with friend's assistance if needed. Frequency of Treatment Frequency Of Treatment Discharge Recommendations To Nursing Amount of Assist Needed Standby Assistance Discharge Recommendations PT Discharge Recommendations Home Transportation Needs at Discharge Private Vehicle
--- NOTE | 2019-08-04 11:11 | PC.NURSE ---
Addendum entered by Martha Monge R.N. 08/04/19 15:55: Pt given back her own home meds brought u p to unit by Pharmacy of Bactroban ointment and bottled labelled Oxycontin 40mg. Discharge summary packet reviewed with pt, all questions answered, no further voiced concerns. Pt calling a taxi for her rise home, did try to get a friend to pick her up as well. Pt states has all belongings. Pt left unit at 1528 via wheelchair with FITTER MECHANIC escort, FITTER MECHANIC reported waiting 20mins at front of hospital for Taxi's arrival. Original Note: Day Shift- Anterior neck dresisng removed per . Order to have changed. Incision covered with CDI steri-strips, no S/S of infection noted. Livan drain removed without difficulty. Area cleansed with NS, pat dry. 2 folded 4X4 gauze dressing applied over incision and secured with 2 tegaderm dressings. Pt tolerated well. OT Maureen assisted holding neck skin to apply dressing. Pt wearing soft collar throughout shift. OOB ambulation SBA with steady gait, voiding qs. Pain controlled with scheduled Oxycontin and PRn Oxycodone given at 0830. Pt plan to discharge later today after lunch, pt will be taking a taxi home.
--- NOTE | 2019-08-04 11:50 | OT.IP.EVAL ---
Current Diagnoses Other forms of scoliosis, lumbar region (08/03/19) Other spondylosis with myelopathy, cervical region (08/03/19) Spinal stenosis, cervical region (08/03/19) Arthrodesis status (08/03/19) Surgery Performed Operation Date: 08/03/19 13:00 Actual Procedures p Remove old C5-6 plate & anterior discectomy & instrument fusion w/bone graft at C4-5 & C6-7 - Lawson Vail MD Past Medical History (Last Updated 07/31/19 @ 14:20 by Debbi Goldberg RN) BCC (basal cell carcinoma) (Acute ~02/2019) Central sleep apnea (Acute) Chronic pain (Acute) Depression (Acute) Edema (Acute) Fibromyalgia (Acute) Glaucoma (Acute) Headache, migraine (Acute) HTN (hypertension) (Acute) Hypothyroid (Acute) Osteoarthritis (Acute) Peripheral neuropathy (Acute) Rheumatoid arthritis (Acute) Seasonal allergies (Acute) TIA (transient ischemic attack) (Acute ~2013) Surgical History (Last Updated 07/31/19 @ 14:20 by Debbi Goldberg RN) Hx of bilateral cataract extraction (Acute) Hx of cervical discectomy (Acute) Hx of laminectomy (Acute) Hx of lumbar discectomy (Acute) Occupational Therapy Inpatient Evaluation/Re-Eval M1 PT/OT-IP Prior Functional Status Start: 08/04/19 09:25 Freq: NEEDED Status: Active Protocol: Document 08/04/19 11:50 PJM (Rec: 08/04/19 15:48 PJAmie [email or web address]) Medical Review Prior Functional Status Medical History Reviewed Yes Diet/Fluid Consistency Regular Communication WNL Mobility and Gait Pt states she is independent with all mobility with a device. However, pt has fibromyalgia and RA, and occasionally uses quad cane for mobility if she has a flare up. Activities of Daily Living and IADL's Pt states she is independent with all ADLs and IADLS including driving Social History Household Members none Living Arrangements Apartment/Condo Number of Stairs To Enter/Railing? elevator access Home Environment Tub/Shower,Elevator Home Equipment Quad Cane,Hand Held Shower, Grab Bars In Shower Employment Status Retired Additional Social History Comment Pt states she has friends who can assist with IADLS after d/ c. She is using a taxi service to d/c home today. M2 OT-IP Current Condition Start: 08/04/19 08:37 Freq: Status: Active Protocol: Document 08/04/19 11:50 PJM (Rec: 08/04/19 15:48 PJM [email or web address]) Occupational Therapy Current Condition Current Condition Evaluation Date 08/04/19 Treatment Diagnosis dereased self care s/p C5-6, C6-7 anterior diskectomy and fusion Diagnosis Onset Date 08/03/19 Post Operative Precautions Cervical Spine Precautions Soft Collar for Comfort,No Heavy Lifting,Log Roll M3 OT- IP Subjective and Pain Start: 08/04/19 08:37 Freq: Status: Active Protocol: Document 08/04/19 11:50 PJM (Rec: 08/04/19 15:48 PJM [email or web address]) OT- Subjective Occupational Therapy Visit Type Type Initial Evaluation Visit Start Time 10:54 Visit Stop Time 11:50 Total Visit Minutes 56 Occupational Therapy Visit Comments Patient Comments I am feeling pretty good. Patient/Caregiver Goals to go home today, to resume independent living alone OT Pain Assessment Pain When Pain Assessed After Treatment Pain Present Pain Present Pain Reported Location Bilateral Upper Shoulder Intensity 5 Scale Used Numeric (1 - 10) Description Aching,Acute,Spasm Pain Behaviors Guarding Management Techniques Distraction,Re-positioning, Timing of Activity with Medications M4 OT- IP ADL's Start: 08/04/19 08:37 Freq: Status: Active Protocol: Document 08/04/19 11:50 PJM (Rec: 08/04/19 15:48 PJM [email or web address]) OT [id number] General Evaluation Self-Feeding Ability Independent Comments OT Self-Feeding Comments pt denies difficulty swallowing at breakfast OT ADL-Grooming General Evaluation Grooming Ability Independent Areas Needing Assistance Applying Deodorant,Combing/ Brushing Hair,Face Washing Comments OT Grooming Comments standing at sink for 10+ min OT ADL-Oral Care General Eval Oral Care Ability Independent Areas of Assistance Brushing Teeth Devices Oral Care Devices Toothbrush Comments Oral Care Comments provided education re: body mechanics OT ADL-Dressing General Eval Upper Body Dressing Ability Independent Lower Body Dressing Ability Independent Assistive Devices Dressing Assistive Devices Deputy Head Comments OT Dressing Comments after education re: body mechanics; internet sales manager provided for retrieving items off floor OT ADL-Toileting General Evaluation Toileting Ability Independent OT ADL-Bathing Devices Bathing Equipment Long Handled Sponge or Teachey, Hand Held Shower Sprayer Comments OT Bathing Comments Pt declined to shower here; provided education re: body mechanics; pt plans to stand to shower and long bath sponge provided. M5 OT- IP IADL's Start: 08/04/19 08:37 Freq: Status: Active Protocol: Document 08/04/19 11:50 PJM (Rec: 08/04/19 15:48 PJM [email or web address]) OT-Instrumental Activities of Daily Living Deficits IADL Deficits Identified Deficits Home Safety Awareness Awareness of Need for Assistance at Home Good Awareness Ability to Problem Solve Emergency Able to Problem Solve Situations Medication Management Medication Management No Deficits Identified Medication Management Comments pt states she writes down time when she takes pain meds Money Management Money Management No Deficits Identified Meal Preparation Meal Preparation No Deficits Identified Meal Preparation Comments pt has bought groceries ahead of time and planned eays to prepare meals Bakery Demonstrator Bakery Demonstrator Caregiver Provides Assist Bakery Demonstrator Comments pt states friends can assist PRN Driving Driving Caregiver Provides Assist Driving Comments pt plans to take taxi until able to drive M6 OT- IP Functional Cognition Start: 08/04/19 08:37 Freq: Status: Active Protocol: Document 08/04/19 11:50 PJM (Rec: 08/04/19 15:48 PJM [email or web address]) Cognitive Factors Limiting Selfcare Function Cognitive Ability Level of Alertness Alert Attention Span Ability Capable of Focused Attention Ability to Follow Commands Able to Follow One Step Commands Memory Description Short Term Impaired Safety Awareness Decreased Ability to Apply Precautions Problem Solving Ability Needs Assist to Identify Solutions Executive Function Ability Unable to Filter Distractions, Unable to Remember Details Cognitive Comments Cognitive Assessment Comments Pt very verbal and self distracts with conversation. She requires prolonged time to complete basic self care tasks such as grooming due to many supplies brought to hospital. Sequencing of self care tasks is unorganized with min to mod cues to follow C spine precautions. Pt requires repetition of new information OT- Vision and Hearing OT- Hearing Assessment OT- Hearing Assessment WFL OT- Vision Assessment Vision History Glaucoma Visual Acuity Glasses For Reading M7 OT- IP Mobility and Balance Start: 08/04/19 08:37 Freq: Status: Active Protocol: Document 08/04/19 11:50 PJM (Rec: 08/04/19 15:48 PJM [email or web address]) OT-Transfer Assessment Sit to and From Stand Sit to and from Stand Independent Transfers Transfer Ability Independent Technique Transfer Destination Chair Transfer Technique Stand Step Pivot Devices Transfer Assistive Devices None Comments Mobility Comments Pt up in room and later in hallway ad rubio without a device with no LOB noted. OT- Gait Assessment Gait Gait Assistance Required: Independent Distance (Feet) 20 Assistive Devices Assistive Device None OT- Balance Assessment Sitting Balance and Reactions Static Sitting Balance Ability Good Dynamic Sitting Balance Ability Good Standing Balance and Reactions Static Standing Balance Ability Good Dynamic Standing Balance Ability Good Comments Other Balance Tests/Deviations/Treatment during self care tasks : M8 OT- IP Objective Assessments Start: 08/04/19 08:37 Freq: Status: Active Protocol: Document 08/04/19 11:50 PJM (Rec: 08/04/19 15:48 PJM [email or web address]) OT Gross Range of Motion Upper Extremity Range of Motion Assessment Within Functional Limits ROM Impairments within C spine precautions OT Strength Upper Extremity Strength Assessment Within Functional Limits Hand Computer Repair Technician Strength Hand Dominance Right OT- Coordination Assessment Comments Coordination Comments BUE WNL OT-Muscle Tone Assessment Muscle Tone WNL Yes OT Sensation Assessment Comments Summary Comments Pt denies deficits in BUE's Edema Edema Absent M9 OT- IP Assessment and Plan Start: 08/04/19 08:37 Freq: Status: Active Protocol: Document 08/04/19 11:50 PJM (Rec: 08/04/19 15:48 PJM [email or web address]) OT Summary Assessment and Plan Potential Rehabilitation Potential Good Analytic Complexity at Evaluation Low Summary OT Impairments Pain Progress Towards Goals Safe For Discharge Assessment Summary Low complexity OT assessment and all education completed in one visit re: C spine precautions and adapted ADL techniques for dressing, bathing, toileting and IADLS as described above. Pt able to don and doff C collar independently after education. Pt plans to d/c home alone later today with intermittent assist from friends with IADLS. No further OT services needed. Frequency of Treatment Frequency Of Treatment Discharge Discharge Recommendations OT Discharge Recommendations Home with Assistance Transportation Needs at Discharge Private Vehicle (taxi)
--- NOTE | 2019-08-04 11:50 | CM.DANOTE ---
Discharge Planning/Care Management DCP: assessment: case received and met this morning with pt. Introduced self and role. Pt is a 68 year old female who admitted yesterday for planned spinal/cervical surgery. Surgeon: Dr. Vail. Payer: [facility] Admission status: in review: per UR NETTE Flanagan. Pt confirms she is aware of the d/c order for today. At that point her drain was still in place with plans to remove it later today and she was pending therapy eval. Soft collar in place. Pt says she feels comfortable with the d/c for this afternoon. She has made arrangements with a [employer] service to pick her up at at d/c and take her home. She states a friend who is also a neighbor will be checking on on her. P: home as per above, later today. Dr. Vail did see pt very early this morning and his d/c order is noted. Advanced directive, confirm from FAMILY Start: 08/03/19 17:05 Freq: Q24H Status: Active Protocol: Document 08/03/19 16:40 HCW (Rec: 08/03/19 21:17 HCW [id number]) Advance Directive, confirm on record Time 16:40 Person contacted patient Copy received No CM Discharge Assessment Start: 08/04/19 11:48 Freq: Status: Active Protocol: Document 08/04/19 11:49 ITV (Rec: 08/04/19 11:49 ITV [id number]) Discharge Planning Assessment Advance Directives? Yes Advance Directives on File No History Provided By Patient,Medical Record Prior Living Arrangements Apartment/Condo Household Members none Independent with ADL's Yes Is patient alert and oriented? Yes Review Status In Process Pre-Anesthesia Assessment Start: 07/31/19 13:39 Freq: Status: Complete Protocol: Document 07/31/19 13:39 CAB (Rec: 07/31/19 14:35 CAB [id number]) Pre-Anesthesia Assessment Patient Information Reviewed Via Phone Assessment Assessment Completed With Patient Diagnostic Results BMP/CMP,CBC,EKG Comment Labs/EKG @ [facility] 07/11/19 Primary Care Provider Yelena Zapata Seen Specialist in Last 12 Months Yes Specialist Seen Hammerer Tab,Opthamologist/ Digital Computer Operator,Orthopedist,Other Primary Language Hungarian Franchise Field Consultant Required No Height 153.67 cm Weight 66.224 kg Body Mass Index (BMI) 28.0 Hearing Ability Normal Visual Assist Glasses Dentition Type Full- Upper & Lower Barriers to Learning None Other Aids No Hx Anesthesia Reactions No Hx Family Anesthesia Reaction No Hx Malignant Hyperthermia No Hx Blood Transfusions No Anesthesia Review Requested No alcohol intake current alcohol intake frequency holidays/special occasions only Smoking Status Never smoker Substance Use Type does not use Pain Present Pain Reported Musculoskeletal Symptoms Abnormal Gait,Back Pain, Difficulty Walking,Joint Pain, Limited Range of Motion,Neck Pain,Numbness,Radiating Pain into Limb,Tingling History of Falling (Recent or History of No ) Patient is completely paralyzed or No completely immobile Prosthesis or Orthotic Device Cane Mental Status Oriented to own ability Is patient on oxygen? No Does patient have [place]/SOB No Hx Sleep Apnea Yes: Central sleep apnea, wears ViPAP CPAP/BIPAP use prescribed and used routinely Will Bring CPAP/BIPAP DOS Yes Currently Taking a Beta Sarah No Can You Climb a Flight of Stairs Without Yes SOB Hx Chest Pain No Hx SOB No Hx Syncope or Dizziness Yes: Occasional dizziness a little Anti-Coagulant Therapy No Has a Margin Analyst No Cardiac Testing No Hx Pacemaker/ICD No Pacemaker Rep Required? No Cardiac Clearance Received Not Applicable Diet Type At Home Vegetarian dysphagia No Bladder Pattern Urgency Urinary Catheter Present No Hx Urinary Self Catheterization No Diabetes No Patient No Lactating No Hx Drug Resistant Organism No Presence of External or Internal Medical Yes: ViPAP for sleep apnea, Devices bilateral eye lens Have you traveled outside the [facility] in the last 30 days? Marital Status Single Lives With none Prior Living Arrangements Apartment/Condo Support System Friend(s) Does the Patient Have Assistance After Yes: Does not have anyone who Surgery can spend the night Patient Discharge Plan Description Return Home Comment Pt advised one night length of stay per surgeon Feels Safe in Current Environment Yes Been Physically Hurt or Threatened By a No Person in Current Environment Do you have thoughts of harming yourself None or others? Are you currently considering suicide? No Do you have a plan to hurt yourself or No Plan others? Do You Have Any Spiritual Beliefs That No May Affect Your HC Choices? Do You Have Any Cultural Practices That No May Affect Your HC Choices? Spiritual Referral In-House Visualizer Comment Sikh Who Can We Speak to About Patient's Care Family, friends Identifying Code for Release of Patient Henry Information Health Care Proxy/Next of Kin William (son) Health Care Proxy Emergency Contact Name Lisette (friend) Emergency Contact Advance Directives? Yes Advance Directives on File No Requested Patient Bring Advanced Yes Directives DOS Power of Customer Sales Advisor No PAC Instructions Durable medical equipment, Medications to take/avoid, Nasal antibiotic,No ETOH/ petroleum product on skin DOS, NPO,Post-op transportation,Pre -surgical wash,Sturdy shoes/ comfortable clothes,Do not bring valuables and remove jewelry
--- NOTE | 2019-08-04 13:33 | ST.IPSCREEN ---
Speech therapy screen completed per ACDF protocol. Patient denies any symptoms of dysphagia or dysphonia. She ate pasta for dinner last night and eggs and sausage for breakfast this AM without difficulty. She passed the 3 oz Jennings Swallow Protocol. Complete evaluation not warranted at this time. D/c speech eval orders.
--- NOTE | 2019-08-04 14:10 | PM.CHAP ---
called Елена Morrow at the [facility] for visitation from [facility]
--- NOTE | 2019-08-04 15:15 | PM.CHAP ---
patient being d/c. no television reporter visit needed.
== END 2019-08-04 15:28 | disposition home or self-care (01) | DRG 472 ==
PROVIDERS: Admitting Provider Orthopaedic Surgery; PCP Family Medicine; Referring Provider Orthopaedic Surgery; Visit Provider Orthopaedic Surgery
PROC: 0RG20A0 Fusion of 2 or more Cervical Vertebral Joints with Interbody Fusion Device, Anterior Approach, Anterior Column, Open Approach (ICD-10-PCS; principal; 2019-08-03 13:00)
DX: M48.02 Spinal stenosis, cervical region (principal); M47.12 Other spondylosis with myelopathy, cervical region; G47.33 Obstructive sleep apnea (adult) (pediatric); G47.31 Primary central sleep apnea; E03.9 Hypothyroidism, unspecified; I10 Essential (primary) hypertension; M79.7 Fibromyalgia; F32.9 Major depressive disorder, single episode, unspecified; M25.78 Osteophyte, vertebrae
CPT/HCPCS: 72040; 76000; 97161; 97165; 97530; 97535; C1776; A9270; J0330; J0690; J1100; J1170; J2405; J2704

== ENCOUNTER 2020-01-08 05:43 | Emergency (ER) | payer OTHER, SELFPAY ==
[2019-08-03 18:55] VITALS: BMI 29.9
[2020-01-08 05:44] VITALS: BP 169/83; PULSE 80; RESP 16; TEMP 36.9; O2SAT 96; BMI 29.7
--- NOTE | 2020-01-08 05:53 | DI.CT.S_ITS ---
PROCEDURE: CT HEAD/BRAIN WO CON INDICATIONS: Fell hit front of head TECHNIQUE: Noncontrast 4.5 mm thick angled axial sections acquired from the foramen magnum to the vertex, with coronal and sagittal reformats. For radiation dose reduction, the following was used: automated exposure control, adjustment of mA and/or kV according to patient size. COMPARISON: None. FINDINGS: Image quality: Excellent. CSF spaces: Basal cisterns are patent. No extra-axial fluid collections. The ventricles are symmetric in size and shape. Brain: No intracranial bleeds or masses. There is cerebral volume loss for age, with resultant ventricular and sulcal prominence. There are periventricular and deep white matter chronic small vessel ischemic changes. There is intracranial internal carotid artery atherosclerosis. Skull and face: Calvarium and visualized facial bones appear intact, without suspicious lesions. Sinuses: Visualized sinuses and mastoids are clear. IMPRESSION: No acute intracranial disease process. Dictated by: Dania Cowan MD, PhD on 01/08/2020 at 7:18 Approved by: Dania Cowan MD, PhD on 01/08/2020 at 7:19
--- NOTE | 2020-01-08 05:54 | ED_ITS ---
HPI - General Adult General Chief complaint: Fall Stated complaint: Fall Time Seen by Provider: 01/08/20 05:44 Source: patient and EMS Mode of arrival: EMS Limitations: no limitations History of Present Illness HPI narrative: 69-year-old female not on anticoagulation brought in by EMS for evaluation of injuries that she sustained when she stood up from sitting in her chair and fell forward hitting her head on the ground. There was no loss of consciousness. She states that she forgot that she was sleeping in her chair after she fell asleep while reading last evening. She had no loss of consciousness. Does have some bruising over her nose. She reports no other injuries from the event. No interventions by EMS prior to arrival. Related Data Home Medications Medication Instructions Recorded Confirmed Calcium/Magnesium (#CALCIUM & 1 cap PO QDAY #0 01/06/13 08/03/19 MAGNESIUM CHELATE 180 MG-90 MG) acyclovir [Zovirax] 1 applic TOPICAL PRN PRN #0 01/06/13 07/31/19 cholecalciferol (vitamin D3) 2 tab PO QDAY #0 01/06/13 08/03/19 [Vitamin D3] cyclobenzaprine 10 mg PO HS #0 01/06/13 08/03/19 estradiol [Vagifem] 10 mcg VG QWEEK #0 01/06/13 07/31/19 owxwsemo-dtlwu-coe 2-C-D3-puja 1 tab PO DAILY #0 01/06/13 08/03/19 omega 1-mgq-nkz-fish oil [Fish Oil] 1,000 mg PO DAILY #0 01/06/13 08/03/19 oxycodone [OxyContin] 40 mg PO BID #0 01/06/13 08/03/19 oxycodone-acetaminophen [Percocet] 2 tab PO BID PRN #0 01/06/13 08/03/19 paroxetine HCl [Paxil CR] 37.5 mg PO QDAY #0 01/06/13 08/03/19 trazodone 50 mg PO HS #0 01/06/13 08/03/19 vitamin B complex 1 cap PO DAILY #0 01/06/13 08/03/19 levocetirizine 5 mg PO QDAY #0 05/26/16 08/03/19 hydrochlorothiazide 25 mg PO DAILY 07/31/19 08/03/19 levothyroxine [Levoxyl] 50 mcg PO DAILY 07/31/19 08/03/19 meloxicam 15 mg PO DAILY 07/31/19 08/03/19 Previous Rx's Medication Instructions Recorded oxycodone See Rx Instructions .ROUTE 08/04/19 .COMPLEX PRN #40 tab Allergies Allergy/AdvReac Type Severity Reaction Status Date / Time bupropion [From WELLBUTRIN] Allergy Severe I SWELL Verified 08/03/19 13:03 UP sulfamethoxazole Allergy Severe HIVES, Verified 08/03/19 13:03 [From SEPTRA] SWELLING trimethoprim [From SEPTRA] Allergy Severe HIVES, Verified 08/03/19 13:03 SWELLING wool [WOOL] Allergy Severe ANAPHYLAXIS Verified 08/03/19 13:03 gemifloxacin [GEMIFLOXACIN] Allergy Intermediate RASH Verified 08/03/19 13:03 Quinolones [QUINOLONES] Allergy Intermediate ESPECIALLY:CIPRO-AFFECTING Verified 08/03/19 13:03 B/P/RESPIRATORY;FACTIVE-BODY RASH Sulfa (Sulfonamide Allergy Intermediate RASH Verified 08/03/19 13:03 Antibiotics) [SULFA (SULFONAMIDE ANTIBIOTICS)] pregabalin [From LYRICA] AdvReac Severe WEIGHT GAIN Verified 08/03/19 13:03 adhesive [ADHESIVE] AdvReac Mild REDNESS Verified 08/03/19 13:03 FROM TAPE Review of Systems Constitutional Constitutional: Denies fever(s), Denies frequent falls and Denies headache(s) Eyes Eyes: Denies change in vision ENT Ears, Nose, Mouth, and Throat: Denies headache(s) Comments: Abrasion over bridge of nose Cardiovascular Cardiovascular: Denies chest pain and Denies dyspnea Respiratory Respiratory: Denies dyspnea Gastrointestinal Gastrointestinal: Denies abdominal pain Musculoskeletal Musculoskeletal: Denies arthralgias and Denies myalgias Integumentary/Breasts Comments: Abrasion over bridge of nose Neurologic Neurologic: Denies behavioral changes, Denies frequent falls and Denies headache(s) Psychiatric Psychiatric: Denies behavioral changes Patient History Medical History BCC (basal cell carcinoma) (Acute ~02/2019) Central sleep apnea (Acute) Chronic pain (Acute) Depression (Acute) Edema (Acute) Fibromyalgia (Acute) Glaucoma (Acute) Headache, migraine (Acute) HTN (hypertension) (Acute) Hypothyroid (Acute) Osteoarthritis (Acute) Peripheral neuropathy (Acute) Rheumatoid arthritis (Acute) Seasonal allergies (Acute) TIA (transient ischemic attack) (Acute ~2014) Surgical History (Updated 07/31/19 @ 14:20 by Debbi Goldberg RN) Hx of bilateral cataract extraction (Acute) Hx of cervical discectomy (Acute) Hx of laminectomy (Acute) Hx of lumbar discectomy (Acute) Social History household members: none Smoking Status: Never smoker alcohol intake: current Exam Initial Vital Signs Initial Vital Signs: Vital Signs Temperature 98.4 F 01/08/20 05:44 Pulse Rate 80 01/08/20 05:44 Respiratory Rate 16 01/08/20 05:44 Blood Pressure 169/83 H 01/08/20 05:44 Pulse Oximetry 96 01/08/20 05:44 Const General: cooperative and comfortable Limitations: mental status not altered HENMT Head: normal to inspection and normocephalic Nose: other (Abrasion over bridge of nose) Resp Effort & Inspection: normal respiratory effort Auscultation: clear to auscultation bilaterally Cardio Rate: regular rate Rhythm: regular rhythm Back/Spine/Pelvis Cervical Spine: No collar present and No cervical spinal tenderness Skin Lesions: no lesions Rashes: no rashes Neuro General: patient alert and patient awake Cognition: normal cognition Speech: speech normal Extrem General: normal to inspection and capillary refill normal Psych Appearance: grossly normal and well kempt Scores GCS Lake coma scale eye opening: Spontaneous Lake coma scale verbal response: Orientated Lake coma scale motor response: Obey commands Lake coma scale total score: 15 Nexus Score for C-Spine Focal Neurologic deficit present: No Midline spinal tenderness present: No Altered level of conciousness present: No Intoxication present: No Distracting Injury Present: No Nexus Criteria for C-spine: 0 Course Orders Ordered: ED Orders 01/08/20 05:53 CT head/brain wo con Stat Vital Signs Vital signs: Vital Signs - 8 hr 01/08/20 05:44 Temperature 98.4 F Pulse Rate 80 Respiratory Rate 16 Blood Pressure 169/83 H Pulse Oximetry 96 Medical Decision Making Imaging Data CT scan - head: Radiologist's Impression: Generalized involutional changes and chronic m icrovascular changes. No acute abnormality MDM Narrative Medical decision making narrative: No pain on the cervical spine. Abrasion over the bridge of nose needs no intervention. Head CT was unremarkable. Not on anticoagulation. No other injuries found on exam reported by patient. Will discharge patient home. She was given return precautions. She expressed understanding agreement. Discharge Plan Departure Patient Disposition: Home Clinical Impression: Abrasion of skin Fall Qualifiers: Encounter type: initial encounter Qualified Code(s): W19.XXXA - Unspecified fall, initial encounter Instructions: How to Prevent Falls Activity Restrictions/Additional Instructions: You can shower like normal. Continue all of your medications as directed. Return to the emergency department for any new or worsening symptoms Prescriptions: No Action cyclobenzaprine 10 MG tablet 10 mg PO HS Qty: 0 RF: 0 trazodone 100 MG tablet 50 mg PO HS Qty: 0 RF: 0 oxycodone-acetaminophen [Percocet] 7.5 MG/325 MG tablet 2 tab PO BID PRN (Reason: Pain) Qty: 0 RF: 0 vitamin B complex Capsule 1 cap PO DAILY Qty: 0 RF: 0 paroxetine HCl [Paxil CR] 37.5 MG tablet extended release 24 hr 37.5 mg PO QDAY Qty: 0 RF: 0 cholecalciferol (vitamin D3) [Vitamin D3] 2,000 UNIT tablet 2 tab PO QDAY Qty: 0 RF: 0 omega 4-vqj-mll-fish oil [Fish Oil] 1,000 MG capsule 1,000 mg PO DAILY Qty: 0 RF: 0 vvlfumce-dxcsc-omx 2-C-D3-puja 750-30-1,000-1 qg-np-mwux-mg Tablet 1 tab PO DAILY Qty: 0 RF: 0 oxycodone [OxyContin] 40 mg Tablet,Oral Only,Ext.Rel.12 Hr 40 mg PO BID Qty: 0 RF: 0 Calcium/Magnesium (#CALCIUM & MAGNESIUM CHELATE 180 MG-90 MG) 1 cap PO QDAY Qty: 0 RF: 0 acyclovir [Zovirax] 5 % ointment 1 applic topical PRN PRN (Reason: Cold Sores) Qty: 0 RF: 0 estradiol [Vagifem] 10 MCG tablet 10 mcg VG QWEEK Qty: 0 RF: 0 levocetirizine 5 MG tablet 5 mg PO QDAY Qty: 0 RF: 0 levothyroxine [Levoxyl] 50 mcg Tablet 50 mcg PO DAILY RF: 0 meloxicam 15 mg Tablet 15 mg PO DAILY RF: 0 hydrochlorothiazide 25 mg Tablet 25 mg PO DAILY RF: 0 oxycodone 10 mg Tablet See Rx Instructions .ROUTE .COMPLEX PRN (Reason: Pain, Severe (7-10)) Qty: 40 RF: 0
[2020-01-08 07:44] VITALS: BP 163/77; PULSE 83; RESP 16; O2SAT 97
== END 2020-01-08 07:44 | disposition home or self-care (01) ==
PROVIDERS: Emergency Provider Emergency Medicine; PCP Family Medicine
DX: S00.31XA Abrasion of nose, initial encounter (principal); S09.90XA Unspecified injury of head, initial encounter; W07.XXXA Fall from chair, initial encounter
CPT/HCPCS: 70450; 99283; 99284

== ENCOUNTER → 2020-05-29 12:34 | Outpatient (CLI) | payer OTHER, SELFPAY ==
[2019-08-03 18:55] VITALS: BMI 29.9
[2020-05-29 13:47] LABS: Add Manual Diff / Slide Review NO; Basophils Absolute Auto 0 /uL (0-100); Basophils Percent Auto 0.6 % (0-2); Eosinophils Absolute Auto 400 /uL (0-450); Hematocrit 43.6 % (36-46); Hemoglobin 14.2 g/dL (12.0-16.0); Lymphocytes Absolute Auto 1800 /uL (1100-4500); Lymphocytes Percent Auto 33.6 % (25-40); Mean Corpuscular HGB Conc 32.5 % (30-36); Mean Corpuscular Volume 83.2 fL (80-100); Monocytes Absolute Auto 400 /uL (0-900); Monocytes Percent Auto 6.7 % (3-14); Neutrophils Absolute Auto 2800 /uL (1500-7000); Neutrophils Percent Auto 51.1 % (50-75); Platelet Count 245 X10^3/uL (150-400); Red Blood Cell Count 5.24 X10^6/uL (4.0-5.2); White Blood Cell Count 5.5 X10^3/uL (4.5-11.0)
[2020-05-29 14:06] LABS: Alanine Aminotransferase 17 IU/L (<35); Albumin 4.4 g/dL (3.5-5.0); Albumin Globulin Ratio 1.3 (1.0-2.8); Alkaline Phosphatase 62 U/L (38-126); Aspartate Aminotransferase 32 IU/L (14-36); BUN Creatinine Ratio 19.2 (6-22); Bilirubin Total 0.6 mg/dL (0.2-1.3); Blood Urea Nitrogen 19 mg/dL (7-17); Calcium 9.3 mg/dL (8.4-10.2); Carbon Dioxide 32 mmol/L (22-32); Chloride 104 mmol/L (98-107); Cholesterol 235 mg/dL (140-199); Estimated Glomerular Filt Rate 55.3 mL/min (>60); Globulin 3.3 g/dL (1.7-4.1); Glucose 83 mg/dL (80-110); HDL Cholesterol 50 mg/dL (40-60); HEMOLYSIS < 15 (0-50); LDL Cholesterol Calculated 153 mg/dL (<100); Potassium 4.1 mmol/L (3.4-5.1); Sodium 140 mmol/L (137-145); Total Protein 7.7 g/dL (6.3-8.2); Triglycerides 161 mg/dL (35-150)
[2020-05-29 14:50] LABS: Vitamin B12 892 pg/mL (239-931)
== END ==
PROVIDERS: PCP Family Medicine; Referring Provider Family Medicine; Visit Provider Family Medicine
DX: M79.7 Fibromyalgia (principal); E78.5 Hyperlipidemia, unspecified; E03.9 Hypothyroidism, unspecified; M53.80 Other specified dorsopathies, site unspecified; I12.9 Hypertensive chronic kidney disease with stage 1 through stage 4 chronic kidney disease, or unspecified chronic kidney disease; N18.32 Chronic kidney disease, stage 3b; E87.6 Hypokalemia; M17.0 Bilateral primary osteoarthritis of knee; F41.8 Other specified anxiety disorders; G47.30 Sleep apnea, unspecified; G62.9 Polyneuropathy, unspecified; G43.909 Migraine, unspecified, not intractable, without status migrainosus
CPT/HCPCS: 36415; 80053; 80061; 82607; 84439; 84443; 85025

== ENCOUNTER → 2020-08-28 10:49 | Outpatient (CLI) | payer MEDICARE, SELFPAY ==
[2019-08-03 18:55] VITALS: BMI 29.9
[2020-08-28] MEDS: COVID-19 VACC #1, MRNA(MOD) 100 MCG/0.5 ML VIAL IM (10:59)
== END ==
PROVIDERS: PCP Family Medicine; Visit Provider Internal Medicine
DX: Z23 Encounter for immunization (principal)
CPT/HCPCS: 0011A; 91301

== ENCOUNTER → 2020-09-25 12:01 | Outpatient (CLI) | payer MEDICARE, SELFPAY ==
[2019-08-03 18:55] VITALS: BMI 29.9
[2020-09-25] MEDS: COVID-19 VACC #2, MRNA(MOD) 100 MCG/0.5 ML VIAL IM (12:09)
== END ==
PROVIDERS: PCP Family Medicine; Visit Provider Internal Medicine
DX: Z23 Encounter for immunization (principal)
CPT/HCPCS: 0012A; 91301

== ENCOUNTER → 2020-12-25 13:47 | Outpatient (CLI) | payer OTHER, SELFPAY ==
[2019-08-03 18:55] VITALS: BMI 29.9
--- NOTE | 2020-12-25 13:50 | DI.MRI.S_ITS ---
PROCEDURE: MR HEAD/BRAIN WO/W CON INDICATIONS: symptoms and signs involving cognitive functions TECHNIQUE: Noncontrast axial T1 spin echo, axial T2 fast spin echo, sagittal and axial FLAIR, coronal T2 fast spin echo, axial gradient echo, axial diffusion and ADC through the brain. After the administration of contrast, axial and coronal T1 spin echo with fat saturation through the brain. COMPARISON: MR, STROKE PROTOCOL, 06/23/2012, 18:20. [facility], CT, CT HEAD/BRAIN WO CON, 01/08/2020, 6:01. FINDINGS: Image quality: Excellent. CSF spaces: Basal cisterns are patent. No extra-axial fluid collections. Ventricles are normal in size and shape. Brain: No midline shift. No intracranial bleeds or masses. No abnormal intracranial enhancement. There is mild to moderate cerebral volume loss for age. There is moderate periventricular white matter chronic small vessel ischemic change. The brainstem appears normal. Diffusion-weighted images demonstrate no acute ischemic insults. No chronic ischemic insults. Normal intravascular flow voids are present. Skull and face: Calvarial marrow is normal in signal. Orbits appear normal. Sinuses: Sinuses and mastoids appear clear. IMPRESSION: 1. No acute intracranial disease process. 2. No areas of acute or chronic infarction. 3. No abnormal intracranial mass or suspicious postcontrast enhancement. 4. Gnmb-gl-wkjpjjik diffuse cerebral volume loss. 5. Moderate periventricular and subcortical white matter chronic microvascular ischemic changes. Dictated by: Dania Cowan MD, PhD on 12/25/2020 at 15:35 Approved by: Dania Cowan MD, PhD on 12/25/2020 at 15:44
== END ==
PROVIDERS: PCP Family Medicine; Referring Provider Specialist; Visit Provider Specialist
DX: R41.89 Other symptoms and signs involving cognitive functions and awareness (principal)
CPT/HCPCS: 70553; A9579

== ENCOUNTER → 2021-04-16 11:57 | Outpatient (CLI) | payer OTHER, SELFPAY ==
[2019-08-03 18:55] VITALS: BMI 29.9
--- NOTE | 2021-04-16 | DI.RAD.S_ITS ---
PROCEDURE: XR KNEE RT 3V INDICATIONS: Bilateral knee pain TECHNIQUE: 3 views of the knee were acquired. COMPARISON: None. FINDINGS: Bones: No fractures or dislocations. No suspicious bony lesions. Soft tissues: No joint effusion. No suspicious soft tissue calcifications. IMPRESSION: No acute osseous abnormality. Dictated by: Dustin Rosas M.D. on 04/16/2021 at 13:21 Approved by: Dustin Rosas M.D. on 04/16/2021 at 13:22
--- NOTE | 2021-04-16 | DI.RAD.S_ITS ---
PROCEDURE: XR KNEE LT 3V INDICATIONS: bilateral knee pain TECHNIQUE: 3 views of the knee were acquired. COMPARISON: None. FINDINGS: Bones: No fractures or dislocations. No suspicious bony lesions. Mild tricompartment osteophytosis. Soft tissues: No joint effusion. No suspicious soft tissue calcifications. IMPRESSION: No acute osseous abnormality. Dictated by: Dustin Rosas M.D. on 04/16/2021 at 13:22 Approved by: Dustin Rosas M.D. on 04/16/2021 at 13:22
== END ==
PROVIDERS: PCP Family Medicine; Referring Provider Family Medicine; Visit Provider Family Medicine
DX: M25.562 Pain in left knee (principal); M25.561 Pain in right knee
CPT/HCPCS: 73562

== ENCOUNTER 2022-08-01 00:29 | Emergency (ER) | payer OTHER, SELFPAY ==
[2019-08-03 18:55] VITALS: BMI 29.9
--- NOTE | 2022-08-01 00:44 | DI.RAD.S_ITS ---
PROCEDURE: XR SHOULDER RT MIN 2V INDICATIONS: fall with shoulder pain TECHNIQUE: Two views of the shoulder were acquired. COMPARISON: None. FINDINGS: Bones: No fractures or dislocations. Diffuse demineralization. No suspicious bony lesions. Visualized ribs appear intact. Soft tissues: No suspicious soft tissue calcifications. IMPRESSION: No visible fracture. Dictated by: Lyssa Lovett M.D. on 08/01/2022 at 3:02 Approved by: Lyssa Lovett M.D. on 08/01/2022 at 3:03
[2022-08-01 00:46] VITALS: BP 156/77; PULSE 93; RESP 16; TEMP 36.6; O2SAT 98; BMI 25.4
--- NOTE | 2022-08-01 02:53 | ED_ITS ---
HPI - Extremity Injury (Upper) General Chief Complaint: Extremity Injury, Upper Stated Complaint: rt. shoulder pain Time Seen by Provider: 08/01/22 02:52 Source: patient Mode of arrival: Ambulatory Limitations: no limitations History of Present Illness HPI narrative: This is a 71-year-old female with history of chronic back pain and osteoarthritis. Patient states today she was walking her dog she was holding the leash in her right hand she states it is not as strong as her left and while talking with some other individuals the dog pulled from her pulled her forward causing her to fall onto her right shoulder. She states pain has been persistent. She would sit feels a little bit weaker but is also painful with movement. She can move her shoulder but particularly abduction and full flexion above her head is painful. She states pain does radiate down her arm towards her elbow. She denies pain in her wrist hand or lower arm. She denies any other injuries. Patient denies numbness, tingling or difficulty with flakeboard line tender. Denies hitting her head. No neck or back pain. No chest pain or shortness of breath. No other GI or urinary symptoms. Patient denies any other injuries. Denies any scrapes or abrasions. Patient was concerned she may have injured the bone or dislocated presented for evaluation. She notes she is had prior back surgeries. She does have an orthopedic surgeon at [place] that she follows with. She states she takes pain medication as needed for home and does not need any prescriptions for pain control. Patient has multiple medication allergies. Related Data Home Medications Medication Instructions Recorded Confirmed Calcium/Magnesium (#CALCIUM & 1 cap PO QDAY ##0 01/06/13 08/03/19 MAGNESIUM CHELATE 180 MG-90 MG) acyclovir 5 % topical ointment 1 applic topical PRN PRN Cold 01/06/13 07/31/19 (Zovirax) Sores ##0 cholecalciferol (vitamin D3) 50 2 tab PO QDAY ##0 01/06/13 08/03/19 mcg (2,000 unit) tablet (Vitamin D3) cyclobenzaprine 10 mg tablet 10 mg PO HS ##0 01/06/13 08/03/19 estradiol 10 mcg vaginal tablet 10 mcg VG QWEEK ##0 01/06/13 07/31/19 (Vagifem) glucosamine 750 tx-degfie-eie 2-C 1 tab PO DAILY ##0 01/06/13 08/03/19 30 mg-D3 1,000 unit-puja 1 mg tablet omega 8-nrj-msg-fish oil 1,000 mg 1,000 mg PO DAILY ##0 01/06/13 08/03/19 (120 mg-180 mg) capsule (Fish Oil) oxycodone 40 mg tablet,crush 40 mg PO BID ##0 01/06/13 08/03/19 resistant,extended release 12 hr (OxyContin) oxycodone-acetaminophen 7.5 mg-325 2 tab PO BID PRN Pain ##0 01/06/13 08/03/19 mg tablet (Percocet) paroxetine HCl 37.5 mg 37.5 mg PO QDAY ##0 01/06/13 08/03/19 tablet,extended release 24 hr (Paxil CR) trazodone 100 mg tablet 50 mg PO HS ##0 01/06/13 08/03/19 vitamin B complex 1 cap PO DAILY ##0 01/06/13 08/03/19 levocetirizine 5 mg tablet 5 mg PO QDAY ##0 05/26/16 08/03/19 hydrochlorothiazide 25 mg tablet 25 mg PO DAILY 07/31/19 08/03/19 levothyroxine 50 mcg tablet 50 mcg PO DAILY 07/31/19 08/03/19 (Levoxyl) meloxicam 15 mg tablet 15 mg PO DAILY 07/31/19 08/03/19 Previous Rx's Medication Instructions Recorded oxycodone 10 mg tablet See Rx Instructions .Route 08/04/19 .COMPLEX PRN Pain, Severe (7-10) #40 tabs Allergies Allergy/AdvReac Type Severity Reaction Status Date / Time bupropion [From WELLBUTRIN] Allergy Severe I SWELL Verified 08/03/19 13:03 UP sulfamethoxazole Allergy Severe HIVES, Verified 08/03/19 13:03 [From SEPTRA] SWELLING trimethoprim [From SEPTRA] Allergy Severe HIVES, Verified 08/03/19 13:03 SWELLING wool [WOOL] Allergy Severe ANAPHYLAXIS Verified 08/03/19 13:03 gemifloxacin [GEMIFLOXACIN] Allergy Intermediate RASH Verified 08/03/19 13:03 Quinolones [QUINOLONES] Allergy Intermediate ESPECIALLY:CIPRO-AFFECTING Verified 08/03/19 13:03 B/P/RESPIRATORY;FACTIVE-BODY RASH Sulfa (Sulfonamide Allergy Intermediate RASH Verified 08/03/19 13:03 Antibiotics) [SULFA (SULFONAMIDE ANTIBIOTICS)] pregabalin [From LYRICA] AdvReac Severe WEIGHT GAIN Verified 08/03/19 13:03 adhesive [ADHESIVE] AdvReac Mild REDNESS Verified 08/03/19 13:03 FROM TAPE Review of Systems Review of Systems ROS Unobtainable: All systems reviewed & are unremarkable except as noted in HPI and below Patient History Medical History BCC (basal cell carcinoma) (~02/2019) Central sleep apnea Chronic pain Depression Edema Fibromyalgia Glaucoma Headache, migraine HTN (hypertension) Hypothyroid Osteoarthritis Peripheral neuropathy Rheumatoid arthritis Seasonal allergies TIA (transient ischemic attack) (~2013) Surgical History Hx of bilateral cataract extraction Hx of cervical discectomy Hx of laminectomy Hx of lumbar discectomy Social History household members: none Smoking Status: Never smoker alcohol intake: current Smoking Status: Never smoker alcohol intake frequency: holidays/special occasions only Substance Use Type: does not use Exam Narrative Exam Narrative: GENERAL: Alert and oriented x three, female in mild distress. HEENT: Head normocephalic, atraumatic, EOMI, pupils reactive, face symmetric, moist mucous membranes NECK: Supple, full range of motion, no cervical tenderness. CARDIOVASCULAR: Regular rate and rhythm without murmurs, rubs or gallops. RESPIRATORY: Breath sounds equal bilaterally, no wheezes rales or rhonchi. ABDOMEN: Soft, nontender. Normoactive bowel sounds all 4 quadrants. No guarding or rebound, rigidity, no mass, negative pelvic rock. : No CVA tenderness EXTREMITIES: Normal range of motion left upper extremity bilateral lower extremities. Patient has pain with full flexion extension of the right shoulder and swell as full abduction but patient can easily go to 90?. No discrete bony tenderness on examination. No deformity. 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 Patient does not have any tenderness of the humerus, elbow, forearm, wrist or hand. Normal sensation bilaterally. 2+ radial pulses bilaterally., no clubbing or edema. N eurovascularly intact NEUROLOGICAL: Cranial nerves II through XII grossly intact. Moving all extremities SKIN: Warm, dry, no petechiae, no rashes or lesions. Initial Vital Signs Initial Vital Signs: Vital Signs Temperature 98 F 08/01/22 00:46 Pulse Rate 93 H 08/01/22 00:46 Respiratory Rate 16 08/01/22 00:46 Blood Pressure 156/77 H 08/01/22 00:46 Pulse Oximetry 98 08/01/22 00:46 Oxygen Delivery Method 08/01/22 00:46 Course Orders Ordered: ED Orders 08/01/22 00:44 XR shoulder RT min 2V Stat Vital Signs Vital signs: Vital Signs - 8 hr 08/01/22 00:46 Temperature 98 F Pulse Rate 93 H Respiratory Rate 16 Blood Pressure 156/77 H Pulse Oximetry 98 Oxygen Delivery Method Room Air MDM - Extremity Injury (Upper) Imaging Data Extremity x-ray #1: Radiologist's Impression: [address] [address] XRay Report Signed Patient: Gabby Howell MR#: [id number] : 1950 Acct:[id number] Age/Sex: 71 / F Date of Service: 08/01/22 Loc: ED Accession Number: [id number] ?? Procedure: XR shoulder RT min 2V Ordering Provider: Ruby Mandel D.O. PROCEDURE:? XR SHOULDER RT MIN 2V ? INDICATIONS:? fall with shoulder pain ? TECHNIQUE:? Two views of the shoulder were acquired.? ? COMPARISON:? None. ? FINDINGS:? ? Bones:? No fractures or dislocations.? Diffuse demineralization.? No suspicious bony lesions.? Visualized ribs appear intact.? ? Soft tissues:? No suspicious soft tissue calcifications.? ? IMPRESSION:? No visible fracture. ? ? Dictated by: Lyssa Lovett M.D. on 08/01/2022 at 3:02 ? ? Approved by: Lyssa Lovett M.D. on 08/01/2022 at 3:03?? MDM Narrative Medical decision making narrative: 71-year-old female with injury to her right shoulder after pulling injury suddenly by her dog and then falling onto the ground. No obvious fracture or dislocation on preliminary evaluation. Patient's exam is overall reassuring did discuss she could possibly have strain injury to ligaments or tendon or even a rotator cuff tear although she is some slight decrease in strength and it is difficult to tell if this is secondary to pain. Patient defers anything for pain plan for sling. Follow-up she does see orthopedic surgery and encouraged her to follow-up if symptoms are persisting beyond a week. We discussed return precautions. All questions answered. Discharge Plan Departure Patient Disposition: Home Clinical Impression: Sprain of right shoulder Instructions: DI for Shoulder Sprain Activity Restrictions/Additional Instructions: Follow-up with your orthopedic surgeon if your symptoms are persisting beyond a week. You may take your home pain medications as normally prescribed. You may wear the sling if it is helpful, if your symptoms are improving you do not need to continue wearing it. Make sure you do gentle range of motion at your shoulder each day to prevent frozen shoulder. OK to use ice pack on the affected body part. Use for 15-20 minutes each time, for 5-6x per day. If you develop worsening pain, numbness, tingling, discoloration of the affected body part, adjust the sling and either see your doctor for an urgent re-assessment, or return to the Emergency Department. Return to the Emergency Department for any new or worsening symptoms. Prescriptions: No Action cyclobenzaprine 10 MG tablet 10 mg PO HS Qty: 0 trazodone 100 MG tablet 50 mg PO HS Qty: 0 oxycodone-acetaminophen [Percocet] 7.5 MG/325 MG tablet 2 tab PO BID PRN (Reason: Pain) Qty: 0 vitamin B complex Capsule 1 cap PO DAILY Qty: 0 paroxetine HCl [Paxil CR] 37.5 MG tablet extended release 24 hr 37.5 mg PO QDAY Qty: 0 cholecalciferol (vitamin D3) [Vitamin D3] 2,000 UNIT tablet 2 tab PO QDAY Qty: 0 omega 1-wcn-bgj-fish oil [Fish Oil] 1,000 MG capsule 1,000 mg PO DAILY Qty: 0 lgdlfqbh-pnpxy-nne 2-C-D3-puja 750-30-1,000-1 ip-cc-vuvr-mg Tablet 1 tab PO DAILY Qty: 0 oxycodone [OxyContin] 40 mg Tablet,Oral Only,Ext.Rel.12 Hr 40 mg PO BID Qty: 0 Calcium/Magnesium (#CALCIUM & MAGNESIUM CHELATE 180 MG-90 MG) 1 cap PO QDAY Qty: 0 acyclovir [Zovirax] 5 % ointment 1 applic topical PRN PRN (Reason: Cold Sores) Qty: 0 estradiol [Vagifem] 10 MCG tablet 10 mcg VG QWEEK Qty: 0 levocetirizine 5 MG tablet 5 mg PO QDAY Qty: 0 levothyroxine [Levoxyl] 50 mcg Tablet 50 mcg PO DAILY meloxicam 15 mg Tablet 15 mg PO DAILY hydrochlorothiazide 25 mg Tablet 25 mg PO DAILY oxycodone 10 mg Tablet See Rx Instructions .ROUTE .COMPLEX PRN (Reason: Pain, Severe (7-10)) Qty: 40 0RF Rx Instructions: 1-2 PO q3h prn pain Referrals: Yelena Zapata MD [Primary Care Provider] - Stand Alone Forms: Patient Portal/API
== END 2022-08-01 03:18 | disposition home or self-care (01) ==
PROVIDERS: Emergency Provider Emergency Medicine; PCP Family Medicine
DX: S43.401A Unspecified sprain of right shoulder joint, initial encounter (principal); W18.30XA Fall on same level, unspecified, initial encounter
CPT/HCPCS: 73030; 99282; 99283

== ENCOUNTER → 2022-08-21 13:38 | Outpatient (CLI) | payer OTHER, SELFPAY ==
[2019-08-03 18:55] VITALS: BMI 29.9
--- NOTE | 2022-08-21 | DI.MG.S_ITS ---
BILATERAL DIGITAL SCREENING MAMMOGRAM 3D/2D WITH CAD: 08/21/2022 CLINICAL: Routine screening. Comparison is made to exams dated: 08/17/2018 mammogram, 04/06/2017 mammogram, and 01/19/2014 mammogram - [facility]. There are scattered areas of fibroglandular density in both breasts (category b / 25%-50% glandular tissue). Current study was also evaluated with a Computer Aided Detection (CAD) system. No significant masses, calcifications, or other findings are seen in either breast. There has been no significant interval change. IMPRESSION: NEGATIVE There is no mammographic evidence of malignancy. A 1 year screening mammogram is recommended. Based on the Tyrer Cuzick model (a risk assessment model) the patient's lifetime risk is 3.3% and her 10 year risk is 2.7%. According to the ACR, ACS, and NCCN guidelines, an annual breast MRI exam along with mammogram is recommended if the patient's lifetime risk is 20% or greater. This exam was interpreted at Station ID: [id number]. NOTE: For mammograms, a report in lay terms will be sent to the patient. Approximately 15% of breast malignancies will not be visualized mammographically. In the management of a palpable breast mass, a negative mammogram must not discourage biopsy of a clinically suspicious lesion. Electronically Signed By: Mony [email or web address]/[email or web address]:08/21/2022 14:08:33 letter sent: Normal Exam ACR BI-RADS Category 1: Negative 3341F
== END ==
PROVIDERS: PCP Family Medicine; Referring Provider Family Medicine; Visit Provider Family Medicine
DX: Z12.31 Encounter for screening mammogram for malignant neoplasm of breast (principal)
CPT/HCPCS: 77063; 77067

== ENCOUNTER 2023-01-19 22:21 | Emergency (ER) | payer OTHER, SELFPAY ==
[2019-08-03 18:55] VITALS: BMI 29.9
[2023-01-19 22:28] VITALS: BP 177/84; PULSE 79; RESP 16; TEMP 36.9; O2SAT 96; BMI 26.9
--- NOTE | 2023-01-20 00:33 | ED_ITS ---
HPI - Recheck/Abnormal Lab/Rx General Chief Complaint: Recheck/Abnormal Lab/Rx Stated Complaint: medication withdrawl Time Seen by Provider: 01/20/23 00:32 Source: patient Mode of arrival: Ambulatory History of Present Illness HPI narrative: Patient 72-year-old female presenting today medication with drawl and requesting for med refill. She reports that she is been on Paxil and OxyContin for over 20 years each. Currently her doctor fired her she prescribed her 3 months' worth of medication she does not have a PCP appointment until the end of March. She is been out of OxyContin which she was taking 40 mg twice a day for 22 years for the last 1 week. She is been out of Paxil for the same amount of time she is also been on that for over 20 years. She has been able to take Percocet she reports that she has a stockpile of Percocet from all of her surgeries she is been able to take 6-8 a day but she continues to have some anxiety headache diarrhea emotional crying and other symptoms. She is asking only for the Paxil she understands that the opiates maybe difficult to refill. She also reports some ankle swelling which comes and goes Related Data Home Medications Medication Instructions Recorded Confirmed Calcium/Magnesium (#CALCIUM & 1 cap PO QDAY ##0 01/06/13 08/03/19 MAGNESIUM CHELATE 180 MG-90 MG) acyclovir 5 % topical ointment 1 applic topical PRN PRN Cold 01/06/13 07/31/19 (Zovirax) Sores ##0 cholecalciferol (vitamin D3) 50 2 tab PO QDAY ##0 01/06/13 08/03/19 mcg (2,000 unit) tablet (Vitamin D3) cyclobenzaprine 10 mg tablet 10 mg PO HS ##0 01/06/13 08/03/19 estradiol 10 mcg vaginal tablet 10 mcg VG QWEEK ##0 01/06/13 07/31/19 (Vagifem) glucosamine 750 fm-cajzlj-wdj 2-C 1 tab PO DAILY ##0 01/06/13 08/03/19 30 mg-D3 1,000 unit-puja 1 mg tablet omega 7-xpu-oml-fish oil 1,000 mg 1,000 mg PO DAILY ##0 07/26/13 02/20/20 (120 mg-180 mg) capsule (Fish Oil) oxycodone 40 mg tablet,crush 40 mg PO BID ##0 01/06/13 08/03/19 resistant,extended release 12 hr (OxyContin) oxycodone-acetaminophen 7.5 mg-325 2 tab PO BID PRN Pain ##0 01/06/13 08/03/19 mg tablet (Percocet) paroxetine HCl 37.5 mg 37.5 mg PO QDAY ##0 01/06/13 08/03/19 tablet,extended release 24 hr (Paxil CR) trazodone 100 mg tablet 50 mg PO HS ##0 01/06/13 08/03/19 vitamin B complex 1 cap PO DAILY ##0 01/06/13 08/03/19 levocetirizine 5 mg tablet 5 mg PO QDAY ##0 05/26/16 08/03/19 hydrochlorothiazide 25 mg tablet 25 mg PO DAILY 07/31/19 08/03/19 levothyroxine 50 mcg tablet 50 mcg PO DAILY 07/31/19 08/03/19 (Levoxyl) meloxicam 15 mg tablet 15 mg PO DAILY 07/31/19 08/03/19 Previous Rx's Medication Instructions Recorded oxycodone 10 mg tablet See Rx Instructions .Route 08/04/19 .COMPLEX PRN Pain, Severe (7-10) #40 tabs paroxetine HCl 37.5 mg 37.5 mg PO QAM #90 tabs 01/20/23 tablet,extended release 24 hr (Paxil CR) Allergies Allergy/AdvReac Type Severity Reaction Status Date / Time bupropion [From WELLBUTRIN] Allergy Severe I SWELL Verified 08/03/19 13:03 UP sulfamethoxazole Allergy Severe HIVES, Verified 08/03/19 13:03 [From SEPTRA] SWELLING trimethoprim [From SEPTRA] Allergy Severe HIVES, Verified 08/03/19 13:03 SWELLING wool [WOOL] Allergy Severe ANAPHYLAXIS Verified 08/03/19 13:03 gemifloxacin [GEMIFLOXACIN] Allergy Intermediate RASH Verified 08/03/19 13:03 Quinolones [QUINOLONES] Allergy Intermediate ESPECIALLY:CIPRO-AFFECTING Verified 08/03/19 13:03 B/P/RESPIRATORY;FACTIVE-BODY RASH Sulfa (Sulfonamide Allergy Intermediate RASH Verified 08/03/19 13:03 Antibiotics) [SULFA (SULFONAMIDE ANTIBIOTICS)] pregabalin [From LYRICA] AdvReac Severe WEIGHT GAIN Verified 08/03/19 13:03 adhesive [ADHESIVE] AdvReac Mild REDNESS Verified 08/03/19 13:03 FROM TAPE Review of Systems Review of Systems ROS Unobtainable: All systems reviewed & are unremarkable except as noted in HPI and below Patient History Medical History (Updated 01/20/23 @ 00:50 by Ansley Anthony DO) BCC (basal cell carcinoma) (~02/2019) Central sleep apnea Chronic pain Depression Edema Fibromyalgia Glaucoma Headache, migraine HTN (hypertension) Hypothyroid Osteoarthritis Peripheral neuropathy Rheumatoid arthritis Seasonal allergies TIA (transient ischemic attack) (~2013) Surgical History Hx of bilateral cataract extraction Hx of cervical discectomy Hx of laminectomy Hx of lumbar discectomy Social History household members: none Smoking Status: Never smoker alcohol intake: current Smoking Status: Never smoker alcohol intake frequency: holidays/special occasions only Substance Use Type: does not use Exam Initial Vital Signs Initial Vital Signs: Vital Signs Temperature 98.4 F 01/19/23 22:28 Pulse Rate 79 01/19/23 22:28 Respiratory Rate 16 01/19/23 22:28 Blood Pressure 177/84 H 01/19/23 22:28 Pulse Oximetry 96 01/19/23 22:28 Oxygen Delivery Method Room Air 01/19/23 22:28 GENERAL: Alert pleasant well-appearing 72-year-old CARDIOVASCULAR: peripheral pulses in tact, cap refill <2 sec RESPIRATORY: No respiratory distress, speaks in full sentences without difficulty EXTREMITIES: Normal range of motion, no clubbing or edema. Neurovascularly intact NEUROLOGICAL: Cranial nerves II through XII grossly intact. Normal gait and speech. SKIN: Warm, dry, no petechiae, no rashes or lesions. Course Orders Ordered: Discontinued Medications Paroxetine HCl (Paroxetine 20 Mg Tablet) 30 mg PO NOW ONE Stop: 01/20/23 00:45 Last Admin: 01/20/23 00:53 Dose: 30 mg Documented By: HNG Vital Signs Vital signs: Vital Signs - 8 hr 01/20/23 00:57 Pulse Rate 72 Respiratory Rate 16 Blood Pressure 175/84 H Pulse Oximetry 98 Oxygen Delivery Method Room Air MDM - Recheck/Abnormal Lab/Rx MDM Narrative Medical decision making narrative: Patient is certainly going through some opiate withdrawal however he is not nauseated or vomiting. Able to tolerate Percocet we discussed tapering Percocet may sure she has enough. Also likely going through some Paxil withdrawal. Happy to refill her Paxil she is not asking for any opiates Discharge Plan Departure Patient Disposition: Home Clinical Impression: Depression, Chronic prescription opiate use Instructions: Depression Activity Restrictions/Additional Instructions: *You have been diagnosed with depression, chronic opiate use *What to do: At this time please monitor your Percocet use recommend tapering i f needed *Continue to take medications as directed Paxil 37.5 mg once a day sent to [facility] *Follow up with your primary care provider in 2-3 days or call [phone] *Return to ER if you should have persistent nausea vomiting diarrhea not able to hold any fluids or any new, worsening or concerning symptoms Prescriptions: New paroxetine HCl [Paxil CR] 37.5 mg tablet extended release 24 hr 37.5 mg PO QAM Qty: 90 0RF No Action cyclobenzaprine 10 MG tablet 10 mg PO HS Qty: 0 trazodone 100 MG tablet 50 mg PO HS Qty: 0 oxycodone-acetaminophen [Percocet] 7.5 MG/325 MG tablet 2 tab PO BID PRN (Reason: Pain) Qty: 0 vitamin B complex Capsule 1 cap PO DAILY Qty: 0 paroxetine HCl [Paxil CR] 37.5 MG tablet extended release 24 hr 37.5 mg PO QDAY Qty: 0 cholecalciferol (vitamin D3) [Vitamin D3] 2,000 UNIT tablet 2 tab PO QDAY Qty: 0 omega 2-qpc-itb-fish oil [Fish Oil] 1,000 MG capsule 1,000 mg PO DAILY Qty: 0 zpwjxhnl-avdnc-fsn 2-C-D3-puja 750-30-1,000-1 mx-nq-nmmo-mg Tablet 1 tab PO DAILY Qty: 0 oxycodone [OxyContin] 40 mg Tablet,Oral Only,Ext.Rel.12 Hr 40 mg PO BID Qty: 0 Calcium/Magnesium (#CALCIUM & MAGNESIUM CHELATE 180 MG-90 MG) 1 cap PO QDAY Qty: 0 acyclovir [Zovirax] 5 % ointment 1 applic topical PRN PRN (Reason: Cold Sores) Qty: 0 estradiol [Vagifem] 10 MCG tablet 10 mcg VG QWEEK Qty: 0 levocetirizine 5 MG tablet 5 mg PO QDAY Qty: 0 levothyroxine [Levoxyl] 50 mcg Tablet 50 mcg PO DAILY meloxicam 15 mg Tablet 15 mg PO DAILY hydrochlorothiazide 25 mg Tablet 25 mg PO DAILY oxycodone 10 mg Tablet See Rx Instructions .ROUTE .COMPLEX PRN (Reason: Pain, Severe (7-10)) Qty: 40 0RF Rx Instructions: 1-2 PO q3h prn pain Referrals: Yelena Zapata MD [Primary Care Provider] - Stand Alone Forms: Patient Portal/API
[2023-01-20] MEDS: PARoxetine 20 MG TABLET 30 MG PO (00:53)
[2023-01-20 00:57] VITALS: BP 175/84; PULSE 72; RESP 16; O2SAT 98
== END 2023-01-20 00:58 | disposition home or self-care (01) ==
PROVIDERS: Emergency Provider Emergency Medicine; PCP Family Medicine
DX: F32.A Depression, unspecified (principal); F11.93 Opioid use, unspecified with withdrawal
CPT/HCPCS: 99283

== ENCOUNTER → 2023-09-10 13:39 | Outpatient (CLI) | payer OTHER, MEDICAID, SELFPAY ==
[2019-08-03 18:55] VITALS: BMI 29.9
--- NOTE | 2023-09-10 13:40 | DI.MRI.S_ITS ---
PROCEDURE: MR LUMBAR SPINE WO CON INDICATIONS: neck and back pain, failed surgery of both TECHNIQUE: Noncontrast sagittal T1 spin echo and T2 fast echo, sagittal STIR, and T2 fast spin echo through the lumbar spine. In cases with scoliosis, additional coronal T2 fast spin echo may be performed. COMPARISON: [facility], MR, MR LUMBAR SPINE WO CON, 05/29/2019, 13:09. FINDINGS: Image quality: Excellent. Alignment and Curvature: Levo scoliotic curvature of the lumbar spine. Straightening of the normal lumbar lordosis. Mild retrolisthesis of L2 on L3, L3 on L4, L4 on L5 and L5 on S1. Bone Marrow: Multilevel Modic type 1 and 2 degenerative endplate changes. Marrow is of normal overall signal. No acute vertebral body compression fractures. L5-S1 posterior element fusion. Spinal Cord: Conus medullaris terminates at the L2 level. Visualized cord demonstrates normal signal and size. Paraspinous Soft Tissues: No paravertebral masses. T12-L1: Disc desiccation mild diffuse disc bulge. No significant central canal or neural foraminal stenosis. L1-L2: Disc desiccation height loss. Mild posterior disc bulge. Facet arthropathy stable mild central canal stenosis. No significant neural foraminal stenosis. L2-L3: Disc desiccation height loss. Mild diffuse disc bulge. Facet arthropathy. Mild central canal stenosis. Mild bilateral neural foraminal stenosis is stable. L3-L4: Disc desiccation height loss. Diffuse disc bulge. Facet arthropathy. Stable mild central canal and mild bilateral neural foraminal stenosis. L4-L5: Disc desiccation loss disc bulge. Facet arthropathy. Stable mild central canal stenosis. Stable mild right neural foraminal stenosis. Progression of moderate to severe left neural foraminal stenosis. L5-S1: Disc desiccation height loss. Diffuse disc bulge. Facet arthropathy. Mild central canal stenosis stable. Stable moderate bilateral neural foraminal stenosis. IMPRESSION: 1. Multilevel degenerative changes of the lumbar spine are redemonstrated. Mild progression in moderate to severe left neural foraminal stenosis at L4-5. Otherwise, degenerative changes are similar appearance to prior. 2. Mild multilevel central canal stenosis. Multilevel mild and moderate neural foraminal stenosis as described above. Dictated by: Chele Hawthorne M.D. on 09/10/2023 at 16:17 Approved by: Chele Hawthorne M.D. on 09/10/2023 at 16:23
--- NOTE | 2023-09-10 13:40 | DI.MRI.S_ITS ---
PROCEDURE: MR CERVICAL SPINE WO CON INDICATIONS: neck and back pain, failed surgery of both TECHNIQUE: Noncontrast sagittal T1 spin echo and T2 fast spin echo, sagittal STIR, foraminal oblique sagittal T2 fast spin echo, and axial gradient echo or T2 fast spin echo through the cervical spine. COMPARISON: [facility], MR, MR CERVICAL SPINE WO CON, 05/29/2019, 13:09. FINDINGS: Image quality: Excellent. Alignment and Curvature: Straightening of the normal cervical lordosis. Minimal anterolisthesis of C3 on C4. Bone Marrow: C4-C5 and C6-C7 ACDF. Marrow demonstrates normal overall signal. Spinal Cord: Visualized spinal cord has normal size and signal. No cerebellar tonsillar herniation. Paraspinous Soft Tissues: No paravertebral masses. Prevertebral soft tissues are normal in thickness. C2-C3: No central canal stenosis. Facet and uncovertebral arthropathy. Mild bilateral neural foraminal stenosis is stable. C3-C4: Disc desiccation. No central canal stenosis. Facet and uncovertebral arthropathy. Mild bilateral neural foraminal stenosis. C4-C5: Postoperative changes. No central canal stenosis. Facet and uncovertebral arthropathy. Severe left and mild right neural foraminal stenosis are stable. C5-C6: Postoperative changes. No significant neural foraminal stenosis. Facet and uncovertebral arthropathy. Mild bilateral neural foraminal stenosis is stable. C6-C7: Postoperative changes. Residual posterior disc osteophyte complex. Moderate to severe central canal stenosis is stable. Facet and uncovertebral arthropathy. Severe left and moderate right neural foraminal stenosis is stable. C7-T1: Disc desiccation. Posterior disc osteophyte complex abutting the ventral cord. Facet and uncovertebral arthropathy. Moderate central canal stenosis progressed. Stable mild bilateral neural foraminal stenosis. IMPRESSION: 1. Multilevel degenerative changes of the cervical spine status post C4 through C7 ACDF. 2. Mild progression of degenerative changes at C7-T1 with now moderate central canal stenosis. 3. Resolution of central canal stenosis at C4-C5. 4. Additional degenerative changes are stable compared to prior exam as described above. Dictated by: Chele Hawthorne M.D. on 09/10/2023 at 16:05 Approved by: Chele Hawthorne M.D. on 09/10/2023 at 16:16
== END ==
PROVIDERS: PCP Family Medicine; Referring Provider Family Medicine; Visit Provider Family Medicine
DX: M47.816 Spondylosis without myelopathy or radiculopathy, lumbar region (principal); M47.812 Spondylosis without myelopathy or radiculopathy, cervical region; M47.817 Spondylosis without myelopathy or radiculopathy, lumbosacral region; M48.07 Spinal stenosis, lumbosacral region; M48.061 Spinal stenosis, lumbar region without neurogenic claudication; M54.2 Cervicalgia; M48.9 Spondylopathy, unspecified; M54.9 Dorsalgia, unspecified; G89.29 Other chronic pain; M48.00 Spinal stenosis, site unspecified; G43.909 Migraine, unspecified, not intractable, without status migrainosus; M51.9 Unspecified thoracic, thoracolumbar and lumbosacral intervertebral disc disorder; Z98.1 Arthrodesis status
CPT/HCPCS: 72141; 72148

== ENCOUNTER → 2023-12-03 10:57 | Outpatient (CLI) | payer OTHER, SELFPAY ==
[2019-08-03 18:55] VITALS: BMI 29.9
[2023-12-03 11:59] LABS: Add Manual Diff / Slide Review NO; Basophils Absolute Auto 100 /uL (0-100); Basophils Percent Auto 0.8 % (0-2); Eosinophils Absolute Auto 600 /uL (0-450); Eosinophils Percent Auto 8.5 % (2-4); Hematocrit 41.6 % (36-46); Hemoglobin 13.9 g/dL (12.0-16.0); Lymphocytes Absolute Auto 2100 /uL (1100-4500); Lymphocytes Percent Auto 31.9 % (25-40); Mean Corpuscular HGB Conc 33.4 % (30-36); Mean Corpuscular Hemoglobin 28.4 PG (26-34); Mean Corpuscular Volume 85.1 fL (80-100); Monocytes Absolute Auto 600 /uL (0-900); Monocytes Percent Auto 8.4 % (3-14); Neutrophils Absolute Auto 3300 /uL (1500-7000); Neutrophils Percent Auto 50.4 % (50-75); Platelet Count 246 X10^3/uL (150-400); Red Blood Cell Count 4.89 X10^6/uL (4.0-5.2); Red Cell Distribution Width 13.3 % (11.6-14.8); White Blood Cell Count 6.6 X10^3/uL (4.5-11.0)
[2023-12-03 12:38] LABS: Albumin 4.2 g/dL (3.5-5.0); Albumin Globulin Ratio 1.4 (1.0-2.8); Bilirubin Total 0.7 mg/dL (0.2-1.3); Calcium 9.2 mg/dL (8.4-10.2); Chloride 103 mmol/L (98-107); Globulin 3.1 g/dL (1.7-4.1); HDL Cholesterol 68 mg/dL (40-60); HEMOLYSIS < 15 (0-50); Potassium 3.8 mmol/L (3.4-5.1); Sodium 138 mmol/L (137-145); Total Protein 7.3 g/dL (6.3-8.2); Triglycerides 124 mg/dL (35-150)
[2023-12-03 12:40] LABS: Alanine Aminotransferase 14 IU/L (<35); Alkaline Phosphatase 62 U/L (38-126); Aspartate Aminotransferase 25 IU/L (14-36); BUN Creatinine Ratio 20.3 (6-22); Blood Urea Nitrogen 24 mg/dL (7-17); Carbon Dioxide 30 mmol/L (22-32); Cholesterol 240 mg/dL (140-199); Estimated Glomerular Filt Rate 48 mL/min (>60); Glucose 88 mg/dL (80-110); LDL Cholesterol Calculated 147 mg/dL (<100)
[2023-12-03 12:53] LABS: Free T3, Triiodothyronine Free 4.01 pg/mL (2.77-5.27)
[2023-12-03 13:05] LABS: TSH w/ Reflex to FT4 < 0.02 uIU/mL (0.47-4.68)
[2023-12-03 13:24] LABS: Vitamin B12 > 1000 pg/mL (239-931)
== END ==
PROVIDERS: Family Medicine; PCP Family Medicine; Referring Provider Family Medicine; Visit Provider Family Medicine
DX: I10 Essential (primary) hypertension (principal); E03.9 Hypothyroidism, unspecified; E78.2 Mixed hyperlipidemia
CPT/HCPCS: 36415; 80053; 80061; 82607; 84439; 84443; 84481; 85025

== ENCOUNTER → 2024-07-11 13:43 | Outpatient (CLI) | payer OTHER, MEDICAID, SELFPAY ==
[2024-07-11 12:44] VITALS: BMI 29.9
== END ==
PROVIDERS: PCP Family Medicine; Visit Provider Physician Assistant
DX: R10.30 Lower abdominal pain, unspecified (principal)
CPT/HCPCS: 87086

== ENCOUNTER → 2024-07-28 12:48 | Outpatient (CLI) | payer OTHER, SELFPAY ==
[2024-07-11 12:44] VITALS: BMI 29.9
[2024-07-28 14:47] LABS: Add Manual Diff / Slide Review NO; Basophils Absolute Auto 0 /uL (0-100); Basophils Percent Auto 0.9 % (0-2); Eosinophils Absolute Auto 200 /uL (0-450); Eosinophils Percent Auto 4.2 % (2-4); Hematocrit 40.4 % (36-46); Hemoglobin 13.6 g/dL (12.0-16.0); Lymphocytes Absolute Auto 1800 /uL (1100-4500); Lymphocytes Percent Auto 33.4 % (25-40); Mean Corpuscular HGB Conc 33.7 % (30-36); Mean Corpuscular Hemoglobin 28.3 PG (26-34); Monocytes Absolute Auto 400 /uL (0-900); Monocytes Percent Auto 6.5 % (3-14); Neutrophils Absolute Auto 3000 /uL (1500-7000); Platelet Count 253 X10^3/uL (150-400); Red Blood Cell Count 4.81 X10^6/uL (4.0-5.2); Red Cell Distribution Width 13.8 % (11.6-14.8); White Blood Cell Count 5.5 X10^3/uL (4.5-11.0)
[2024-07-28 15:24] LABS: HEMOLYSIS < 15 (0-50); Iron 78 ug/dL (37-170)
[2024-07-28 15:25] LABS: Alanine Aminotransferase 16 IU/L (<35); Albumin 4.3 g/dL (3.5-5.0); Albumin Globulin Ratio 1.6 (1.0-2.8); Alkaline Phosphatase 52 U/L (38-126); Aspartate Aminotransferase 28 IU/L (14-36); BUN Creatinine Ratio 22.6 (6-22); Bilirubin Total 0.5 mg/dL (0.2-1.3); Blood Urea Nitrogen 26 mg/dL (7-17); Calcium 9.3 mg/dL (8.4-10.2); Carbon Dioxide 29 mmol/L (22-32); Chloride 102 mmol/L (98-107); Cholesterol 213 mg/dL (140-199); Estimated Glomerular Filt Rate 50 mL/min (>60); Globulin 2.7 g/dL (1.7-4.1); Glucose 96 mg/dL (80-110); HDL Cholesterol 60 mg/dL (40-60); HEMOLYSIS < 15 (0-50); LDL Cholesterol Calculated 135 mg/dL (<100); Potassium 3.9 mmol/L (3.4-5.1); Sodium 138 mmol/L (137-145); Triglycerides 89 mg/dL (35-150)
[2024-07-28 15:37] LABS: Percent Iron Saturation 26 % (15-50); Total Iron Binding Capacity 298 ug/dL (265-497); Transferrin 276 mg/dL (206-381)
[2024-07-28 15:55] LABS: TSH w/ Reflex to FT4 0.05 uIU/mL (0.47-4.68)
[2024-07-28 16:26] LABS: Free T4, Direct Thyroxine 1.43 ng/dL (0.78-2.19)
== END ==
PROVIDERS: PCP Family Medicine; Referring Provider Family Medicine; Visit Provider Family Medicine
DX: I10 Essential (primary) hypertension (principal); E03.9 Hypothyroidism, unspecified; E78.2 Mixed hyperlipidemia; R10.32 Left lower quadrant pain; R10.31 Right lower quadrant pain; G89.29 Other chronic pain
CPT/HCPCS: 36415; 80053; 80061; 83540; 83550; 84439; 84443; 85025

== ENCOUNTER → 2024-08-02 12:28 | Outpatient (CLI) | payer OTHER, MEDICAID, SELFPAY ==
[2024-07-11 12:44] VITALS: BMI 29.9
--- NOTE | 2024-08-02 12:29 | DI.CT.S_ITS ---
PROCEDURE: CT ABDOMEN PELVIS W CON INDICATIONS: abdominal pain TECHNIQUE: After the administration of intravenous contrast, axial sections acquired from the lung bases to the pubic symphysis. Coronal and sagittal reformats were performed. For radiation dose reduction, the following was used: automated exposure control, adjustment of mA and/or kV according to patient size. COMPARISON: None. FINDINGS: Image quality: Diagnostic. Lower Chest: Moderate hiatal hernia. ABDOMEN: Liver: No solid mass. Left hepatic lobe cyst and additional subcentimeter hypodensities which are too small to characterize, probable cysts. Gallbladder: No radiopaque gallstones or wall thickening. Biliary ducts: No biliary dilation. Pancreas: No ductal dilation. Spleen: Size is within normal limits. Adrenal Glands: No adrenal nodules. Kidneys and Ureters: No hydronephrosis. No solid mass. No complex renal cystic lesion which requires follow up. Stomach and Bowel: Normal colonic caliber, without significant wall thickening. Scattered colonic divert tracheal oasis without acute inflammation. Peritoneum: No abnormal intraperitoneal fluid. No free air. Ventral Wall: Small fat containing periumbilical hernia.. Abdominal Nodes: No retroperitoneal or mesenteric adenopathy by size criteria. Vessels: Aorta and inferior vena cava are normal in size. PELVIS: Pelvic Organs: Unremarkable. Bladder: No bladder wall thickening, accounting for underdistention. Pelvic Nodes: No enlarged lymph nodes. Miscellaneous: No inguinal hernias are seen. Bones: No aggressive osseous abnormality. Lumbar sacral postsurgical changes. Multilevel degenerative changes without acute vertebral body compression fracture. IMPRESSION: No acute abdominopelvic process. Moderate hiatal hernia. Colonic diverticulosis without CT evidence of acute diverticulitis. Approved by: Magnolia Boggs M.D.,Ph.D. on 08/03/2024 at 21:27
== END ==
PROVIDERS: PCP Family Medicine; Referring Provider Family Medicine; Visit Provider Family Medicine
DX: K44.9 Diaphragmatic hernia without obstruction or gangrene (principal); K76.89 Other specified diseases of liver; K57.90 Diverticulosis of intestine, part unspecified, without perforation or abscess without bleeding; R10.31 Right lower quadrant pain; R10.32 Left lower quadrant pain; G89.29 Other chronic pain
CPT/HCPCS: 74177; Q9967

== ENCOUNTER 2024-12-13 12:30 | Outpatient (RCR) | payer OTHER, MEDICAID, SELFPAY ==
[2024-07-11 12:44] VITALS: BMI 29.9
== END 2024-12-13 14:30 ==
LOC: PUL 12:30
PROVIDERS: PCP Family Medicine; Referring Provider Family Medicine; Visit Provider Family Medicine
DX: R06.09 Other forms of dyspnea (principal); U09.9 Post COVID-19 condition, unspecified
CPT/HCPCS: G0237; G0238

== ENCOUNTER → 2025-03-20 13:38 | Outpatient (CLI) | payer OTHER, MEDICAID, SELFPAY ==
[2025-01-24 04:05] VITALS: BMI 27.3
--- NOTE | 2025-03-20 13:41 | DI.RAD.S_ITS ---
PROCEDURE: XR CHEST 2V INDICATIONS: Shortness of breath TECHNIQUE: 2 views of the chest were acquired. COMPARISON: [facility], , XR CHEST 2V, 05/06/2018, 16:32. FINDINGS: Surgical changes and devices: None. Lungs and pleura: Lungs are clear. No pleural effusions or pneumothorax. Mediastinum: Mediastinal contours are normal. Heart size is normal. Bones and chest wall: No suspicious bony abnormalities. Soft tissues appear unremarkable. IMPRESSION: No acute cardiopulmonary abnormality is seen. Approved by: Zack Yanez M.D. on 03/21/2025 at 13:27
[2025-03-20 14:38] LABS: Add Manual Diff / Slide Review NO; Hematocrit 37.3 % (36-46); Hemoglobin 12.2 g/dL (12.0-16.0); Lymphocytes Absolute Auto 3100 /uL (1100-4500); Mean Corpuscular HGB Conc 32.8 % (30-36); Mean Corpuscular Hemoglobin 26.7 PG (26-34); Mean Corpuscular Volume 81.5 fL (80-100); Platelet Count 263 X10^3/uL (150-400)
== END ==
PROVIDERS: PCP Family Medicine; Referring Provider Surgery; Visit Provider Surgery
DX: R10.9 Unspecified abdominal pain (principal); R06.00 Dyspnea, unspecified; R10.32 Left lower quadrant pain
CPT/HCPCS: 36415; 71046; 85025; 99213

== ENCOUNTER → 2025-04-04 13:39 | Outpatient (CLI) | payer OTHER, MEDICAID, SELFPAY ==
[2025-01-24 04:05] VITALS: BMI 27.3
== END ==
LOC: RESP 13:40
PROVIDERS: PCP Family Medicine; Referring Provider Family Medicine; Visit Provider Family Medicine
DX: J45.909 Unspecified asthma, uncomplicated (principal); R06.02 Shortness of breath; R94.2 Abnormal results of pulmonary function studies
CPT/HCPCS: 94060; 94726; 94729